=== PATIENT | male | born 1970 ===

== ENCOUNTER 2017-01-22 18:59 | Emergency (ER) | payer MEDICAID ==
[2017-01-22 18:59] VITALS: BMI 24.2
[2017-01-22 19:31] VITALS: TEMP 98.4
--- NOTE | 2017-01-22 20:16 | C.PDOC ---
History Of Present Illness 46 y/o M presents for heroin detox. He denies SI/HI/hallucinations, fever, chest pain. Time Seen by Provider: 01/22/17 19:37 Chief Complaint (Nursing): Substance Abuse Past Medical History Vital Signs: Last Vital Signs Temp 98.4 F 01/22/17 19:29 Pulse 88 01/22/17 20:20 Resp 18 01/22/17 20:20 BP 137/82 01/22/17 20:20 Pulse Ox 100 01/22/17 20:20 - Medical History PMH: Back Problems, Hepatitis Surgical History: Endoscopy - [facility] Procedures CLOSURE SKIN & SUBCUTANEOUS NEC (06/14/13) TETANUS TOXOID ADMINIST (06/14/13) Family History: States: Unknown Family Hx - Social History Hx Tobacco Use: No Hx Alcohol Use: Yes (Denies, but pt smells like alcohol) Hx Substance Use: No (pt denies) - Immunization History Hx Tetanus Toxoid Vaccination: Yes Hx Influenza Vaccination: No Hx Pneumococcal Vaccination: No Review Of Systems Except As Marked, All Systems Reviewed And Found Negative. Constitutional: Negative for: Fever Cardiovascular: Negative for: Chest Pain Physical Exam - Physical Exam Appears: No Acute Distress Head: Atraumatic Oral Mucosa: Moist Neck: Supple Cardiovascular: Rhythm Regular Respiratory: No Accessory Muscle Use Gastrointestinal/Abdominal: Soft Gait: Steady ED Course And Treatment O2 Sat by Pulse Oximetry: 97 Medical Decision Making Medical Decision Making: No detox beds available. Gave information for calling back to ask for bed availability. Disposition - Disposition Disposition: HOME/ ROUTINE Disposition Time: 20:15 Condition: STABLE Additional Instructions: Call [phone] (Emergency Department number) and then ask to be transferred to [facility] [id number] (Crisis) and then ask if there are any beds available for detox. Call every day. Instructions: Narcotic Abuse (ED) - Clinical Impression Clinical Impression: Heroin abuse
[2017-01-22 20:25] VITALS: BP 137/82; PULSE 88; RESP 18
[2017-01-22 20:59] VITALS: O2SAT 97
== END 2017-01-22 20:25 | disposition home or self-care (01) ==
LOC: C.ER 18:59
DX: F11.10 Opioid abuse, uncomplicated (principal)

== ENCOUNTER 2017-11-11 01:17 | Inpatient (IN) | payer MEDICAID ==
[2017-11-11 01:40] VITALS: BMI 25.7
[2017-11-11 01:53] LABS: BASO % 0.3 % (0.0-2.0); EOS # 0.2 K/uL (0.0-0.7); EOS % 3.2 % (0.0-4.0); HEMOGLOBIN 16.5 g/dL (12.0-18.0); LYMPH # 2.8 K/uL (1.0-4.3); LYMPH % 39.6 % (20.0-40.0); MEAN CORPUSCULAR HEMOGLOBIN 32.9 pg (27.0-31.0); MEAN CORPUSCULAR HGB CONC 35.4 g/dL (33.0-37.0); MEAN PLATELET VOLUME 9.5 fL (7.2-11.7); MONO # 0.5 K/uL (0.0-0.8); MONO % 6.7 % (0.0-10.0); NEUT # 3.5 K/uL (1.8-7.0); NEUT % 50.2 % (50.0-75.0); NRBC % 0.1 % (0.0-2.0); RBC 5.02 Mil/uL (4.40-5.90); RED CELL DISTRIBUTION WIDTH 13.2 % (11.5-14.5)
[2017-11-11 02:10] LABS: SQUAMOUS EPITHIAL < 1 /hpf (0-5)
[2017-11-11 02:11] LABS: BARBITURATES, UR NEGATIVE (NEGATIVE); BENZODIAZEPINES, UR NEGATIVE (NEGATIVE); OPIATES, UR NEGATIVE (NEGATIVE)
[2017-11-11 02:14] LABS: ALB/GLOB RATIO 1.2 (1.0-2.1); ALBUMIN 4.2 g/dL (3.5-5.0); ALT/SGPT 35 U/L (21-72); AST/SGOT 25 U/L (17-59); BLOOD UREA NITROGEN 7 mg/dL (9-20); CALCIUM 8.9 mg/dl (8.6-10.4); GFR AFRICAN-AMERICAN > 60; GFR NON-AFRICAN AMERICAN > 60
[2017-11-11 02:16] LABS: URINE BILIRUBIN NEGATIVE (NEGATIVE); URINE BLOOD NEGATIVE (NEGATIVE); URINE CLARITY CLEAR (Clear); URINE COLOR YELLOW (YELLOW); URINE GLUCOSE (UA) NEGATIVE (Normal)
[2017-11-11 02:17] LABS: URINE LEUKOCYTE ESTERASE NEGATIVE Leu/uL (Negative); URINE NITRATE NEGATIVE (NEGATIVE); URINE PROTEIN NEGATIVE (NEGATIVE); URINE UROBILINOGEN 0.2 mg/dL (0.2-1.0)
[2017-11-11 02:39] LABS: PHENCYCLIDINE, UR POSITIVE (NEGATIVE)
--- NOTE | 2017-11-11 03:29 | C.PDOC ---
History Of Present Illness Patient is a 47 y/o male who presents to the ED with complaints of depression and suicidal ideations. Patient has a Hx of similar ED presentations in the past. Admits to using unspecified drugs; last used 2 days ago. Patient has no other physical complaints at this time. Time Seen by Provider: 11/11/17 01:46 Chief Complaint (Nursing): Psychiatric Evaluation History Per: Patient History/Exam Limitations: no limitations Current Symptoms Are (Timing): Still Present Suicide/Self Injury Attempted (Context): None Associated Symptoms: Depression, Suicidal Thoughts Recent travel outside of the [place]: No Past Medical History Reviewed: Historical Data, Nursing Documentation, Vital Signs Vital Signs: Last Vital Signs Temp 98 F 11/11/17 01:47 Pulse 100 H 11/11/17 01:47 Resp 20 11/11/17 01:47 BP 153/80 H 11/11/17 01:47 Pulse Ox 100 11/11/17 03:32 - Medical History PMH: Back Problems, Hepatitis Denies: Chronic Kidney Disease Surgical History: Endoscopy - [facility] Procedures CLOSURE SKIN & SUBCUTANEOUS NEC (06/14/13) TETANUS TOXOID ADMINIST (06/14/13) Family History: States: No Known Family Hx - Social History Hx Tobacco Use: No Hx Alcohol Use: Yes Hx Substance Use: Yes (last use 2 days ago) - Immunization History Hx Tetanus Toxoid Vaccination: Yes Hx Influenza Vaccination: No Hx Pneumococcal Vaccination: No Review Of Systems Constitutional: Negative for: Fever, Chills Psych: Positive for: Depression, Suicidal ideation, Other (drug abuse) Physical Exam - Physical Exam Appears: Non-toxic, Agitated, Other (discheveled) Skin: Normal Color, No Rash Head: Atraumatic, Normacephalic Eye(s): bilateral: Normal Inspection, PERRL, EOMI Oral Mucosa: Moist Neck: Normal ROM, Supple Chest: Symmetrical, No Tenderness Cardiovascular: Rhythm Regular, No Friction Rub, No Murmur Respiratory: Normal Breath Sounds, No Rales, No Rhonchi, No Wheezing Gastrointestinal/Abdominal: Soft, No Tenderness Back: Normal Inspection, No CVA Tenderness Neurological/Psych: Normal Speech ED Course And Treatment - Laboratory Results Result Diagrams: 11/11/17 01:50 11/11/17 01:50 O2 Sat by Pulse Oximetry: 100 Progress Note: Crisis notified. Ativan administered. Disposition - Disposition Disposition Time: 06:03 Condition: FAIR Forms: [facility] (German) - POA Present On Arrival: None - Clinical Impression Clinical Impression: Drug abuse, Moderate major depression, single episode - Scribe Statement The provider has reviewed the documentation as recorded by the Scribe Esperanza Petty All medical record entries made by the Scribe were at my direction and personally dictated by me. I have reviewed the chart and agree that the record accurately reflects my personal performance of the history, physical exam, medical decision making, and the department course for this patient. I have also personally directed, reviewed, and agree with the discharge instructions and disposition. Physician Patient Turnover Patient Signed Over To: Carleen Frazier Handoff Comments: Pending psych admission
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
--- NOTE | 2017-11-11 14:54 | PCM.BM ---
<Antionette Sutton - Last Filed: 11/11/17 14:53> Treatment Plan Problems - Problems identified on initial assessmt anxiety Date Initiated: 11/11/17 Time Initiated: 14:53 Assessment reference: NA Status: Active Treatment assets and liabiliti Patient Assests: cooperative, ADL independent, physically healthy, cognitively intact Patient Liabilities: live alone, substance abuse - Milieu Protocol Maintain good personal hygiene: daily Encourage regular showers Maintain personal safety: every shift Educate patient to report safety concerns to staff, every shift Monitor environment for contraband/sharps Medication safety: Monitor for expected outcome, potential side effects: every shift, Assess barriers to learning: every shift, Assess readiness for medication education: every shift Milieu Narrative: Bipolar Disorder, Depressed -CBT -Psychoeducation -Supportive therapy, group therapy, individual therapy -Medications to follow PCP Use disorder severe -Monitor signs and symptoms -Use SC for abstinence DW Dr. Delgado, Antonia Bal DO, PGY-1 Discharge/Continuing Care - Treatment Team Participation Patient/Family/SO Statement: Bipolar Disorder, Depressed -CBT -Psychoeducation -Supportive therapy, group therapy, individual therapy -Medications to follow PCP Use disorder severe -Monitor signs and symptoms -Use SC for abstinence DW Antonia Castellano DO, PGY-1 <Dawna Delgado - Last Filed: 11/12/17 11:13> - Diagnosis (1) Bipolar disorder, curr episode depressed, severe, w/psychotic features Status: Acute Interventions: 11/12/17 11:14 * Assess/adjust medications daily and /or as needed * See patient on an individual basis 7x/week to assess level of manic behaviors and stability * Discuss risks, benefits, side effects and alternatives of medications * <Myra Kapadia - Last Filed: 11/12/17 11:25> Family Contact Family involvement: Famliy/SO not involved - Goals for Treatment Patient goals for treatment: "[facility] to [facility] back to [facility]." Discharge/Continuing Care - Education Needs Education Needs: Patient Medication, Patient Coping Skills - Discharge Discharge Criteria: Tolerates medication w/o severe side effects, Reduction of target symptoms Discharge to:: Home - Treatment Team Participation Discussed with Family/SO: No Was Patient/Family/SO present at Treatment Team Meeting: Yes
--- NOTE | 2017-11-12 11:12 | PCM.PYCHPN ---
Psychiatric Progress Note - Psychiatric Progress Note Patient seen today, length of contact: 16 min Patient Chief Complaint: *Feeling depressed Problems Identified/Issues Discussed: Patient seen and evaluated, chart reviewed and discussed with the nurse. As per the staff, patient still appears isolated, depressed and withdrawn. Patient still reports depressed mood and reports at times feelings of hopelessness or helplessness. He still reports of hearing voices. He needs some more time for stabilization. He is compliant with her medications and denies any side effects. Supportive therapy and psychoeducation were given. Medication Change: Yes (Start Seroquel) Medical Record Reviewed: Yes Mental Status Examination - Cognitive Function Orientation: Person, Place, Situation, Time Memory: Intact Attention: WNL Concentration: Poor Association: WNL Fund of Knowledge: Poor - Mood Mood: Depressed, Anxious - Affect Affect: Constricted, Depressed - Speech Speech: Soft - Formal Thought Process Formal Thought Process: Hallucinations - Suicidal Ideation Suicidal Ideation: No - Homicidal Ideation Homicidal Ideation: No Goal/Treatment Plan - Goal/Treatment Plan Need for Continued Stay: Severe depression anxiety, Severe functional impairment Progress Toward Problem(s) and Goals/Treatment Plan: Bipolar Disorder, Depressed -CBT -Psychoeducation -Supportive therapy, group therapy, individual therapy -Medications to follow -Paxil 10 mg daily -Neurontin 300 mg by mouth twice a day -Trazodone 50 mg by mouth daily at bedtime -Start Seroquel 50 mg by mouth daily at bedtime PCP Use disorder severe -Monitor signs and symptoms -Use CA for abstinence - Smoking Cessation Smoking Cessation Initiated: No
[2017-11-13 07:21] VITALS: O2SAT 98
[2017-11-15 07:55] VITALS: BP 87/58; PULSE 67; RESP 16; TEMP 98.3
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
== END 2017-11-15 10:35 | disposition home or self-care (01) | DRG 430 ==
LOC: C.ER 01:17 → C.5E 08:18
PROVIDERS: ADMIT Psychiatry & Neurology Psychiatry; ATTEND Psychiatry & Neurology Psychiatry
PROC: GZHZZZZ Group Psychotherapy (ICD-10-PCS; principal; 2017-11-11)
PROC: GZ58ZZZ Individual Psychotherapy, Cognitive-Behavioral (ICD-10-PCS; 2017-11-11)
PROC: GZ56ZZZ Individual Psychotherapy, Supportive (ICD-10-PCS; 2017-11-11)
DX: F31.5 Bipolar disorder, current episode depressed, severe, with psychotic features (principal); R45.851 Suicidal ideations; F16.10 Hallucinogen abuse, uncomplicated; Z79.899 Other long term (current) drug therapy

== ENCOUNTER 2018-04-01 12:27 | Inpatient (IN) | payer MEDICAID ==
[2018-04-01 12:28] VITALS: BMI 25.7
[2018-04-01 13:31] LABS: URINE BACTERIA RARE (<OCC); URINE BILIRUBIN NEGATIVE (NEGATIVE); URINE BLOOD NEGATIVE (NEGATIVE); URINE CLARITY Hazy (Clear); URINE COLOR Amber (YELLOW); URINE GLUCOSE (UA) NORMAL (Normal); URINE LEUKOCYTE ESTERASE NEG Leu/uL (Negative); URINE PROTEIN 1+ mg/dL (NEGATIVE)
[2018-04-01 13:45] LABS: BASO % 0.5 % (0.0-2.0); EOS # 0.1 K/uL (0.0-0.7); EOS % 1.3 % (0.0-4.0); HEMOGLOBIN 13.8 g/dL (12.0-18.0); LYMPH # 0.9 K/uL (1.0-4.3); LYMPH % 17.2 % (20.0-40.0); MEAN CELL VOLUME 90.5 fL (80.0-94.0); MEAN CORPUSCULAR HEMOGLOBIN 31.3 pg (27.0-31.0); MEAN CORPUSCULAR HGB CONC 34.6 g/dL (33.0-37.0); MONO # 0.3 K/uL (0.0-0.8); MONO % 5.1 % (0.0-10.0); NEUT # 3.9 K/uL (1.8-7.0); NEUT % 75.9 % (50.0-75.0); RBC 4.42 Mil/uL (4.40-5.90); RED CELL DISTRIBUTION WIDTH 12.6 % (11.5-14.5); WHITE BLOOD COUNT 5.1 K/uL (4.8-10.8)
[2018-04-01 13:52] LABS: BARBITURATES, UR NEGATIVE (NEGATIVE); BENZODIAZEPINES, UR NEGATIVE (NEGATIVE)
[2018-04-01 13:58] LABS: ALB/GLOB RATIO 1.2 (1.0-2.1); ALT/SGPT 28 U/L (21-72); AST/SGOT 28 U/L (17-59); BLOOD UREA NITROGEN 16 mg/dL (9-20); CALCIUM 9.2 mg/dl (8.6-10.4); GFR AFRICAN-AMERICAN > 60; GFR NON-AFRICAN AMERICAN > 60
[2018-04-01 14:12] LABS: OPIATES, UR POSITIVE (NEGATIVE); PHENCYCLIDINE, UR POSITIVE (NEGATIVE)
--- NOTE | 2018-04-01 14:16 | C.PDOC ---
History Of Present Illness The patient presents to the ED requesting heroin detox. Patient states he usually uses 20 bags intravenously, but last used 10 bags yesterday. Patient denies other substance abuse, suicidal/homicidal ideation at this time. Time Seen by Provider: 04/01/18 12:54 Chief Complaint (Nursing): Substance Abuse History Per: Patient History/Exam Limitations: no limitations Onset/Duration Of Symptoms: Hrs Current Symptoms Are (Timing): Still Present Suicide/Self Injury Attempted (Context): None Modifying Factor(s): Narcotics (heroin ) Associated Symptoms: denies: Suicidal Thoughts, Suicidal Plan Involuntary Hold By: None Recent travel outside of the [place]: No Additional History Per: Patient Past Medical History Reviewed: Historical Data, Nursing Documentation, Vital Signs Vital Signs: Last Vital Signs Temp 98 F 04/01/18 12:33 Pulse 78 04/01/18 12:33 Resp 18 04/01/18 12:33 BP 136/72 04/01/18 12:33 Pulse Ox 98 04/01/18 14:55 - Medical History PMH: Back Problems, Hepatitis Denies: Diabetes, HIV, HTN, Chronic Kidney Disease, Seizures, Sexually Transmitted Disease Surgical History: Endoscopy - [facility] Procedures CLOSURE SKIN & SUBCUTANEOUS NEC (06/14/13) GROUP PSYCHOTHERAPY (11/11/17) INDIVIDUAL PSYCHOTHERAPY, COGNITIVE-BEHAVIORAL (11/11/17) INDIVIDUAL PSYCHOTHERAPY, SUPPORTIVE (11/11/17) TETANUS TOXOID ADMINIST (06/14/13) Family History: States: Unknown Family Hx - Social History Hx Tobacco Use: No Hx Alcohol Use: No (denied) Hx Substance Use: Yes (PCP) - Immunization History Hx Tetanus Toxoid Vaccination: Yes Hx Influenza Vaccination: No Hx Pneumococcal Vaccination: No Review Of Systems Psych: Positive for: Other (heroin detox ). Negative for: Suicidal ideation Physical Exam - Physical Exam Additional Physical Exam Comments: Constitutional: No acute distress. Head: Normocephalic. Atraumatic. Eyes: PERRL. ENT: Moist mucous membranes. Neck: Supple. Cardiovascular: Regular rate. Chest: No tenderness. Respiratory: Clear to auscultation bilaterally. GI: Soft. Back: No CVA tenderness. Musculoskeletal: No tenderness or swelling of extremities. Skin: No rash. Neurologic: Alert, no focal deficit. ED Course And Treatment - Laboratory Results Result Diagrams: 04/01/18 13:39 04/01/18 13:39 O2 Sat by Pulse Oximetry: 98 (on RA) Pulse Ox Interpretation: Normal Medical Decision Making Medical Decision Making: Impression: 47 year old male requesting heroin detox Plan: * bloodwork * urinalysis * reassess and disposition Progress: Bloodwork and urinalysis ordered and reviewed. Disposition Discussed With : Doyle Booth - Disposition Disposition: HOSPITALIZED Disposition Time: 14:16 Condition: GUARDED Forms: [employer] (Liberian) - Clinical Impression Clinical Impression: Opioid use disorder, severe, dependence - Scribe Statement The provider has reviewed the documentation as recorded by the Scribe (Danielle Curtis) Provider Attestation: All medical record entries made by the Scribe were at my direction and personally dictated by me. I have reviewed the chart and agree that the record accurately reflects my personal performance of the history, physical exam, medical decision making, and the department course for this patient. I have also personally directed, reviewed, and agree with the discharge instructions and disposition.
--- NOTE | 2018-04-01 15:17 | PCM.BM ---
<Josiah Warner - Last Filed: 04/01/18 15:16> Treatment Plan Problems - Problems identified on initial assessmt potential for opiate withdrawal Date Initiated: 04/01/18 Time Initiated: 15:16 Status: Active Treatment assets and liabiliti Patient Assests: cooperative, ADL independent, physically healthy, cognitively intact Patient Liabilities: substance abuse - Milieu Protocol Maintain good personal hygiene: daily Encourage regular showers, daily Remind patient to perform daily oral care, daily Assist patient to perform ADL's Maintain personal safety: every shift Educate patient to report safety concerns to staff, every shift Monitor environment for contraband/sharps Medication safety: Monitor for expected outcome, potential side effects: every shift, Assess barriers to learning: every shift, Assess readiness for medication education: every shift <Hui Zelaya - Last Filed: 04/04/18 08:07> Family Contact Family involvement: Famliy/SO not involved - Goals for Treatment Patient goals for treatment: Complete detox and transition to IOP. Discharge/Continuing Care - Education Needs Education Needs: Patient Medication, Patient Diagnosis/Disease Process, Patient Coping Skills, Patient Anger Management skills, Patient Placement options, Patient Community resources - Discharge Discharge Criteria: No longer exhibiting s/s of withdrawal, Reduction of target symptoms Discharge to:: Home, With Family - Treatment Team Participation Patient/Family/SO Statement: 04/04/18 08:08 "I [facility] go to the [facility] [place] when I'm done here..." Discussed with Family/SO: No Was Patient/Family/SO present at Treatment Team Meeting: Yes <Doyle Booth - Last Filed: 04/07/18 08:55> - Diagnosis (1) Opioid use disorder, severe, dependence Status: Acute Interventions: 04/04/18 08:55 * Assess 7x/week regarding severity of withdrawal * Educate regarding risks, benefits, side effects and alternatives of medications * Use Motivational Interviewing for abstinence * Use CBT for relapse prevention * Medication management for withdrawal symptoms * Encourage medication assisted treatment *
[2018-04-02] MEDS: Multiple Vitamins Tab PO SCH (09:33)
--- NOTE | 2018-04-02 17:14 | PCM.PSYCH ---
Initial Psychiatric Evaluation - Initial Psychiatric Evaluation Type of Admission: Voluntary Legal Status: Capacity History of Present Illness and Precipitating Events: Patient is 47 year old, single, unemployed Male with history of bipolar disorder depressed, PCP alcohol and heroin use was admitted for the treatment of retrying from alcohol and harrowing and also for depression, hearing voices, and suicidal ideation. He is currently living in an apartment that is supported by "[facility] program- provided by welfare". He is currently unemployed, no children, highest education level of 11th grade. Patient reported feeling depressed with decreased sleep and appetite and lost some weight. Denied any current suicidal ideations or homicidal ideations. Patient reported hearing voices at times telling him to hurt himself. Patient was guarded about his history and it was difficult to obtain information. Most of the history was obtained from previous records. Alcohol: Started at 16 years of age, increased gradually up to 6-7,24 ounces cans daily. Last used 2 days ago. Heroine: Started at 19 years of age. Patient reported that he relapsed about one month ago after a long period of abstinence. Currently he was using 1-1/2 bundles off heroin daily. Snorting. Denied use of any other drugs but old record shows that patient was using PCP. Patient was born in [place] and was attending special ed school. Never and has 3 children. He lives alone and is not working. Current Medications: Active Medications Generic Name Dose Route Start Last Admin Trade Name Freq PRN Reason Stop Dose Admin Chlordiazepoxide 25 mg 04/01/18 17:36 Librium PO Q4H PRN Alcohol Withdrawal Chlordiazepoxide 25 mg 04/01/18 18:00 04/02/18 12:33 Librium PO 04/06/18 17:59 25 mg Q6H RADHA Administration Taper Clonidine HCl 0.1 mg 04/01/18 17:36 Catapres PO Q4H PRN Symptoms of alcohol withdrawl Dicyclomine HCl 10 mg 04/01/18 17:32 Bentyl PO Q6H PRN gastric spasms Folic Acid 1 mg 04/02/18 10:00 04/02/18 09:33 Folic Acid PO 1 mg DAILY RADHA Administration Hydroxyzine HCl 50 mg 04/01/18 17:32 Atarax PO Q6H PRN Anxiety Ibuprofen 600 mg 06/22/18 17:32 Motrin Tab PO Q6H PRN Pain, moderate (4-7) Methadone HCl 20 mg 04/02/18 10:00 04/02/18 09:33 Methadone PO 04/07/18 09:59 20 mg Q24H RADHA Administration Taper Multivitamins 1 tab 04/02/18 10:00 04/02/18 09:33 Hexavitamin PO 1 tab DAILY RADHA Administration Thiamine HCl 100 mg 04/02/18 10:00 04/02/18 09:33 Vitamin B1 Tab PO 100 mg DAILY RADHA Administration Trazodone HCl 100 mg 04/01/18 22:00 04/01/18 21:25 Desyrel PO 100 mg HS RADHA Administration Past Psychiatric History - Past Psychiatric History Previous Treatment History: Inpatient History of Abuse: None reported History of ETOH/Drug Use: See HPI History of Family Illness: Reported his mother has history of depression. Pertinent Medical Hx (Current Medical&Sleep Prob, Allergies): Allergies Allergy/AdvReac Type Severity Reaction Status Date / Time buprenorphine [From Suboxone] Allergy REDNESS Verified 04/01/18 12:43 naloxone [From Suboxone] Allergy REDNESS Verified 04/01/18 12:43 Hepatitis C Review of Systems - Psychiatric Psychiatric: As Per HPI, Depression Mental Status Examination - Personal Presentation Personal Presentation: Looks stated age - Affect Affect: Depressed - Motor Activity Motor Activity: Calm - Reliability in Providing Information Reliability in Providing Information: Fair - Speech Speech: Relevant - Mood Mood: Depressed - Formal Thought Process Formal Thought Process: No Impairment - Hallucinations/Delusions Hallucinations: Other (None reported) Delusions: Other - Obsessions/Compulsions Obsessions: None Compulsions: None - Cognitive Functions Orientation: Person, Place, Situation, Time Sensorium: Alert Attention/Concentration: Attentive Abstract Thinking: [place] Estimate of Intelligence: Average Judgement: Intact, as evidence by: Insight regarding need for hospitalization Memory: Recent intact, as evidence by: Ability to recall events of the day, Remote impaired as evidenced by: Inability to recall sig life events - Risk Risk: Withdrawal, Diminished functioning - Strength & Assets Inventory Strength & Assets Inventory: Cooperative - Limitations Limitations: Living alone DSM 5 DX - DSM 5 DSM 5 Diagnosis: Bipolar 1 disorder most recent episode depressed. Alcohol use disorder severe Opiate use disorder severe - Recommended/Plan of Treatment Treatment Recommendations and Plan of Treatment: Patient education. Supportive therapy. CBT for relapse prevention. MRI for abstinence. Will start methadone taper for opiate withdrawal symptoms. Will start Librium taper for alcohol withdrawal symptoms. Other when necessary medications. Medication for depression. Projected ELOS: 4-5 days - Smoking Cessation Smoking Cessation Initiated: No Reason for not providing: Patient doesn't smoke cigarettes
[2018-04-03] MEDS: Multiple Vitamins Tab PO SCH (10:22)
--- NOTE | 2018-04-03 15:52 | PCM.PYCHPN ---
Psychiatric Progress Note - Psychiatric Progress Note Patient seen today, length of contact: 15 minutes Patient Chief Complaint: I'm feeling better Problems Identified/Issues Discussed: Patient seen, chart reviewed, case discussed with the staff. Issues related to illness and treatment were discussed with the patient. Reported compliant with treatment with no adverse affects. Tolerating treatment very well. Reported feeling better. Aftercare discussed with the patient. At the time of evaluation, patient was awake alert oriented 3, had no delusions , no auditory or visual hallucinations, no suicidal ideations or homicidal ideations. Medical Problems: None reported Diagnostic Results: Reviewed DSM 5 Symptoms Update: Some improvement with treatment Medication Change: No Medical Record Reviewed: Yes Mental Status Examination - Cognitive Function Orientation: Person, Place, Situation, Time Memory: Intact Attention: WNL Concentration: WNL Association: WN Fund of Knowledge: [facility] Decription of patient's judgement and insights: Fair - Mood Mood: Anxious (Much less than before) - Affect Affect: Other (Appropriate) - Speech Speech: Appropriate - Formal Thought Process Formal Thought Process: No Impairment Psychotic Thoughts and Behaviors: None - Suicidal Ideation Suicidal Ideation: No - Homicidal Ideation Homicidal Ideation: No Goal/Treatment Plan - Goal/Treatment Plan Need for Continued Stay: Remain at risks for inpatient hospitalization, Discharge may exacerbated symptoms, Severe functional impairment Progress Toward Problem(s) and Goals/Treatment Plan: Patient education. Supportive therapy. CBT for relapse prevention. [place] for abstinence. Continue treatment as before. Estimated Date of D/C: 04/06/18 - Smoking Cessation Smoking Cessation Initiated: No Reason for not providing: Patient doesn't smoke cigarettes
[2018-04-04] MEDS: Multiple Vitamins Tab PO SCH (09:56)
--- NOTE | 2018-04-04 11:18 | PCM.PYCHPN ---
Psychiatric Progress Note - Psychiatric Progress Note Patient seen today, length of contact: 15 minutes Patient Chief Complaint: "Tired" Problems Identified/Issues Discussed: The pt is seen, chart reviewed, case discussed with staff. The pt is compliant with medications and reports no side-effects. Symptoms are improving but needs more time to stabilize. After care discussed, support and psychoeducation given. Medication Change: Yes (detox changes daily) Medical Record Reviewed: Yes Mental Status Examination - Cognitive Function Orientation: Person, Place, Situation, Time Memory: Intact Attention: WNL Concentration: Poor Association: WNL Fund of Knowledge: WNL - Mood Mood: Depressed - Affect Affect: Constricted - Speech Speech: Appropriate - Formal Thought Process Formal Thought Process: No Impairment - Suicidal Ideation Suicidal Ideation: No - Homicidal Ideation Homicidal Ideation: No Goal/Treatment Plan - Goal/Treatment Plan Need for Continued Stay: Discharge may exacerbated symptoms, Severe functional impairment Progress Toward Problem(s) and Goals/Treatment Plan: Continue medications Support and psychoeducation daily Attend groups and activities daily After care planning by JAZMIN Estimated Date of D/C: 04/06/18
[2018-04-04 16:27] VITALS: RESP 18
[2018-04-04] MEDS ORDERED: Bacitracin 500 Units/gm Oint Foilpak UD TOP ONE (19:00)
--- NOTE | 2018-04-05 08:54 | PCM.PYCHDC ---
Mental Status Examination - Mental Status Examination Orientation: Person, Place, Situation, Time Memory: Intact Mood: Anxious Affect: Constricted Speech: Appropriate Attention: WNL Concentration: Poor Association: WNL Fund of Knowledge: WNL Formal Thought Process: No Impairment Suicidal Ideation: No Current Homicidal Ideation?: No Discharge Summary - Discharge Note Reason for Hospitalization: opioid detox Consultations:: List each consultation separately and include: 1. Reason for request. 2. Findings. 3. Follow-up Summary of Hospital Course include:: 1. Description of specific treatment plan utilized for patients during their course of treatmen. 2. Summarize the time- course for resolution of acute symptoms and/or regressed behaviors. 3. Describe issues identified and worked on during hospitalization. 4. Describe medication utilized. 5. Describe medical problems identified and treated. 6. Reassessment of suicide risk Summary of Hospital Course: Seen today, chart reviewed and case discussed The pt was admitted and started on treatment with psychotherapy, support, psychoeducation and medications. ID and CBT used. The pt attended groups and activities, as well as milieu therapy. All the risks and benefits of medications are discussed and the patient understood and agreed. The pt improved with the treatments provided. After care discussed with the patient. He will go to [facility]. He was minimizing risk of relapse and said that if he could continue his psych meds he would be "clean." All options to prevent relapse discussed. - Final Diagnosis (DSM 5) Condition upon Discharge: IMPROVED DSM 5: Opioid withdrawal Opioid use d/o - sevetre PCP use d/o Schizoaffective d/o Disposition: HOME/ ROUTINE Follow-up Treatment Plan: Continue below medications after discharge. Follow after care plan as discussed. Use relapse prevention skills Return to ER or call 911 if suicidal, homicidal or symptoms relapse. Stay away from stress, alcohol and drugs. See primary doctor regularly and get labs. Prescriptions/Medication Reconciliation: Benztropine [Cogentin] 2 mg PO HS #30 tab Gabapentin [Neurontin] 300 mg PO BID #60 cap Haloperidol [Haldol] 10 mg PO HS #30 tab traZODone [Desyrel] 100 mg PO HS #30 tab - Smoking Cessation Smoking Cessation Medication prescribed: No - Antipsychotic Medications Pt discharged on 2 or more routine antipsychotic medications: No
[2018-04-05 08:59] VITALS: BP 87/57; PULSE 58; TEMP 97.6; O2SAT 97
[2018-04-05] MEDS: Multiple Vitamins Tab PO SCH (09:46)
== END 2018-04-05 10:20 | disposition home or self-care (01) | DRG 745 ==
LOC: C.ER 12:27 → C.7D 14:54
PROVIDERS: ADMIT Psychiatry & Neurology Psychiatry; ATTEND Psychiatry & Neurology Psychiatry
PROC: HZ2ZZZZ Detoxification Services for Substance Abuse Treatment (ICD-10-PCS; principal; 2018-04-01)
PROC: HZ52ZZZ Individual Psychotherapy for Substance Abuse Treatment, Cognitive-Behavioral (ICD-10-PCS; 2018-04-01)
PROC: HZ59ZZZ Individual Psychotherapy for Substance Abuse Treatment, Supportive (ICD-10-PCS; 2018-04-01)
PROC: HZ56ZZZ Individual Psychotherapy for Substance Abuse Treatment, Psychoeducation (ICD-10-PCS; 2018-04-01)
PROC: HZ42ZZZ Group Counseling for Substance Abuse Treatment, Cognitive-Behavioral (ICD-10-PCS; 2018-04-01)
PROC: HZ46ZZZ Group Counseling for Substance Abuse Treatment, Psychoeducation (ICD-10-PCS; 2018-04-01)
PROC: GZHZZZZ Group Psychotherapy (ICD-10-PCS; 2018-04-01)
PROC: GZ58ZZZ Individual Psychotherapy, Cognitive-Behavioral (ICD-10-PCS; 2018-04-01)
PROC: GZ56ZZZ Individual Psychotherapy, Supportive (ICD-10-PCS; 2018-04-01)
DX: F10.230 Alcohol dependence with withdrawal, uncomplicated (principal); F11.23 Opioid dependence with withdrawal; Y90.0 Blood alcohol level of less than 20 mg/100 ml; F31.9 Bipolar disorder, unspecified; R45.851 Suicidal ideations; F16.90 Hallucinogen use, unspecified, uncomplicated; Z81.8 Family history of other mental and behavioral disorders

== ENCOUNTER 2018-05-10 15:01 | Emergency (ER) | payer MEDICAID ==
[2018-05-10 15:01] VITALS: BMI 25.7
[2018-05-10 15:23] VITALS: RESP 18
--- NOTE | 2018-05-10 16:08 | C.PDOC ---
History Of Present Illness 47 yo male comes to ER with complaints of generalized weakness, watery diarrhea , nausea, chills and decreased appetite x 7 days. Patient also admits to using heroin and PCP in the past (last use 1 week ago). He denies vomiting, chest pain, shortness of breath, cough, dysuria/hematuria. Time Seen by Provider: 05/10/18 15:58 Chief Complaint (Nursing): Abdominal Pain History Per: Patient History/Exam Limitations: no limitations Onset/Duration Of Symptoms: Days Current Symptoms Are (Timing): Still Present Severity: Moderate Associated Symptoms: Chills, Nausea, Diarrhea, Loss Of Appetite Additional History Per: Patient Past Medical History Reviewed: Historical Data, Nursing Documentation, Vital Signs Vital Signs: Last Vital Signs Temp 98.3 F 05/10/18 18:42 Pulse 55 L 05/10/18 18:42 Resp 18 05/10/18 18:42 BP 110/73 05/10/18 18:42 Pulse Ox 99 05/10/18 18:42 - Medical History PMH: Anxiety, Back Problems, Bipolar Disorder, Depression, Hepatitis Surgical History: Endoscopy - [facility] Procedures CLOSURE SKIN & SUBCUTANEOUS NEC (06/14/13) DETOXIFICATION SERVICES FOR SUBSTANCE ABUSE TREATMENT (04/01/18) GROUP CULINARY INTERN FOR SUBSTANCE ABUSE TREATMENT, PSYCHOEDUCATION (04/01/18) GROUP CULINARY INTERN FOR SUBSTANCE ABUSE, COGNITIVE BEHAVIORAL (04/01/18) GROUP PSYCHOTHERAPY (04/01/18) INDIV PSYCHOTHERAPY FOR SUBSTANCE ABUSE TREATMENT, SUPPORT (04/01/18) INDIV PSYCHOTHERAPY FOR SUBSTANCE ABUSE, COGNITIV BEHAVIORAL (04/01/18) INDIV PSYCHOTHERAPY FOR SUBSTANCE ABUSE, PSYCHOEDUCATION (04/01/18) INDIVIDUAL PSYCHOTHERAPY, COGNITIVE-BEHAVIORAL (04/01/18) INDIVIDUAL PSYCHOTHERAPY, SUPPORTIVE (04/01/18) TETANUS TOXOID ADMINIST (06/14/13) Family History: States: No Known Family Hx - Social History Hx Tobacco Use: No Hx Alcohol Use: Yes Hx Substance Use: Yes (heroin and PCP) - Immunization History Hx Tetanus Toxoid Vaccination: Yes Hx Influenza Vaccination: No Hx Pneumococcal Vaccination: No Review Of Systems Constitutional: Positive for: Chills, Weakness. Negative for: Fever Cardiovascular: Negative for: Chest Pain, Palpitations Respiratory: Negative for: Cough, Shortness of Breath Gastrointestinal: Positive for: Nausea, Diarrhea. Negative for: Vomiting Genitourinary: Negative for: Dysuria, Hematuria Skin: Negative for: Rash Physical Exam - Physical Exam Appears: Well, Non-toxic, Other (mildly uncomfortable ) Skin: Normal Color, Warm, Dry, No Rash Head: Normacephalic Eye(s): bilateral: Normal Inspection Oral Mucosa: Moist Neck: Supple Cardiovascular: Rhythm Regular Respiratory: Normal Breath Sounds, No Rales, No Rhonchi, No Wheezing Gastrointestinal/Abdominal: Normal Exam, Bowel Sounds, Soft, No Tenderness Back: No CVA Tenderness Neurological/Psych: Oriented x3 ED Course And Treatment - Laboratory Results Result Diagrams: 05/10/18 17:04 05/10/18 17:04 O2 Sat by Pulse Oximetry: 96 (RA) Pulse Ox Interpretation: Normal Progress Note: Blood work, UA ordered and reviewed. Patient given IV NS bolus, IV zofran, PO Bentyl. Reevaluation Time: 18:30 Reassessment Condition: Improved (On reassessment, patient is resting comfortably and states he feels better. On exam, abdomen is soft and nontender. Symptoms likely viral vs opiate withdrawal symptoms. Rxs for Bentyl , Zofran given. Patient instructed to drink plenty of clear fluids, and to follow up with PMD/clinic in 1-2 days. He understands he should return to ED if symptoms worsen.) Disposition Counseled Patient/Family Regarding: Studies Performed, Diagnosis, Need For Followup, Rx Given - Disposition Referrals: [facility] [Outside] Disposition: HOME/ ROUTINE Disposition Time: 18:30 Condition: STABLE Additional Instructions: FOLLOW UP WITH YOUR DOCTOR/CLINIC IN 1-2 DAYS USE MEDICATIONS NEEDED DRINK PLENTY OF CLEAR FLUIDS RETURN TO ER IF SYMPTOMS WORSEN Prescriptions: Dicyclomine [Bentyl] 20 mg PO Q6 PRN #15 tab PRN Reason: ABDOMINAL CRAMPING Ondansetron [Zofran Odt] 4 mg PO Q8 PRN #15 odt PRN Reason: Nausea/Vomiting Forms: [facility] (Swedish), General Discharge Instructions Print Language: KHMER - POA Present On Arrival: None - Clinical Impression Clinical Impression: Diarrhea, Nausea - Scribe Statement The provider has reviewed the documentation as recorded by the Hugh Triplett Provider Attestation: All medical record entries made by the Hugh were at my direction and personally dictated by me. I have reviewed the chart and agree that the record accurately reflects my personal performance of the history, physical exam, medical decision making, and the department course for this patient. I have also personally directed, reviewed, and agree with the discharge instructions and disposition.
[2018-05-10] MEDS ORDERED: Sodium Chloride 0.9% 1,000 ML IV ONE (16:54)
[2018-05-10] MEDS ORDERED: Sodium Chloride 0.9% 0 ML ONE (17:09)
[2018-05-10 17:10] LABS: BASO % 0.3 % (0.0-2.0); EOS # 0.1 K/uL (0.0-0.7); EOS % 0.8 % (0.0-4.0); LYMPH # 0.9 K/uL (1.0-4.3); LYMPH % 13.4 % (20.0-40.0); MEAN CELL VOLUME 91.4 fL (80.0-94.0); MEAN CORPUSCULAR HEMOGLOBIN 31.8 pg (27.0-31.0); MEAN CORPUSCULAR HGB CONC 34.8 g/dL (33.0-37.0); MEAN PLATELET VOLUME 8.6 fL (7.2-11.7); MONO # 0.3 K/uL (0.0-0.8); MONO % 4.2 % (0.0-10.0); NEUT # 5.6 K/uL (1.8-7.0); NEUT % 81.3 % (50.0-75.0); NRBC % 0.1 % (0.0-2.0); RBC 5.43 Mil/uL (4.40-5.90); RED CELL DISTRIBUTION WIDTH 13.1 % (11.5-14.5); URINE BILIRUBIN NEGATIVE (NEGATIVE); URINE BLOOD NEGATIVE (NEGATIVE); URINE CLARITY Clear (Clear); URINE COLOR Yellow (YELLOW); URINE GLUCOSE (UA) NORMAL (Normal); URINE LEUKOCYTE ESTERASE NEG Leu/uL (Negative); URINE PROTEIN NEGATIVE (NEGATIVE); URINE UROBILINOGEN NORMAL mg/dL (0.2-1.0); WHITE BLOOD COUNT 6.9 K/uL (4.8-10.8)
[2018-05-10 17:12] LABS: HEMOGLOBIN 17.3 g/dL (12.0-18.0)
[2018-05-10] MEDS ORDERED: Sodium Chloride 0.9% 1,000 ML ONE (17:20)
[2018-05-10 17:21] LABS: ALB/GLOB RATIO 1.2 (1.0-2.1); ALBUMIN 4.9 g/dL (3.5-5.0); ALT/SGPT 38 U/L (21-72); AST/SGOT 39 U/L (17-59); BLOOD UREA NITROGEN 9 mg/dL (9-20); CALCIUM 10.3 mg/dl (8.6-10.4); GFR AFRICAN-AMERICAN > 60; GFR NON-AFRICAN AMERICAN > 60; LIPASE 285 U/L (23-300)
[2018-05-10 17:57] LABS: BARBITURATES, UR NEGATIVE (NEGATIVE); OPIATES, UR NEGATIVE (NEGATIVE)
[2018-05-10 18:10] LABS: BENZODIAZEPINES, UR POSITIVE (NEGATIVE); PHENCYCLIDINE, UR POSITIVE (NEGATIVE)
[2018-05-10 18:42] VITALS: BP 110/73; PULSE 55; TEMP 98.3
[2018-05-11 16:41] VITALS: O2SAT 96
== END 2018-05-10 18:42 | disposition home or self-care (01) ==
LOC: C.ER 15:01
DX: R19.7 Diarrhea, unspecified (principal); R11.0 Nausea
CPT/HCPCS: 80053; 80324; 80345; 80346; 80349; 80353; 80358; 80361; 81001; 83690; 83992; 85025; 96361; 96374; 99284; J2405; J7030

== ENCOUNTER 2018-06-03 22:38 | Emergency (ER) | payer MEDICAID ==
[2018-06-03 22:38] VITALS: BMI 25.7
[2018-06-03 22:56] VITALS: RESP 20; TEMP 98.5
--- NOTE | 2018-06-03 23:09 | C.PDOC ---
History Of Present Illness Patient presents to the ER with a complaint of feeling weak and being unable to sleep. Patient states he feels very sweaty when he wakes up. Denies chest pain, SOB, ETOH use, or drug use. Time Seen by Provider: 06/03/18 23:09 Chief Complaint (Nursing): Psychiatric Evaluation History Per: Patient History/Exam Limitations: no limitations Onset/Duration Of Symptoms: Hrs Current Symptoms Are (Timing): Still Present Suicide/Self Injury Attempted (Context): None Modifying Factor(s): None Severity: Moderate Pain Scale Rating Of: 4 Associated Symptoms: denies: Depression, Suicidal Thoughts Involuntary Hold By: None Recent travel outside of the [place]: No Past Medical History Reviewed: Historical Data, Nursing Documentation, Vital Signs Vital Signs: Last Vital Signs Temp 98.5 F 06/03/18 22:55 Pulse 87 06/04/18 00:29 Resp 20 06/04/18 00:29 BP 177/87 H 06/04/18 00:29 Pulse Ox 96 06/04/18 01:09 - Medical History PMH: Anxiety, Back Problems, Bipolar Disorder, Depression, Hepatitis Denies: Diabetes, HIV, HTN, Chronic Kidney Disease, Seizures, Sexually Transmitted Disease Surgical History: Endoscopy - [facility] Procedures CLOSURE SKIN & SUBCUTANEOUS NEC (06/14/13) DETOXIFICATION SERVICES FOR SUBSTANCE ABUSE TREATMENT (04/01/18) GROUP SILVER SOLUTION MIXER FOR SUBSTANCE ABUSE TREATMENT, PSYCHOEDUCATION (04/01/18) GROUP SILVER SOLUTION MIXER FOR SUBSTANCE ABUSE, COGNITIVE BEHAVIORAL (04/01/18) GROUP PSYCHOTHERAPY (04/01/18) INDIV PSYCHOTHERAPY FOR SUBSTANCE ABUSE TREATMENT, SUPPORT (04/01/18) INDIV PSYCHOTHERAPY FOR SUBSTANCE ABUSE, COGNITIV BEHAVIORAL (04/01/18) INDIV PSYCHOTHERAPY FOR SUBSTANCE ABUSE, PSYCHOEDUCATION (04/01/18) INDIVIDUAL PSYCHOTHERAPY, COGNITIVE-BEHAVIORAL (04/01/18) INDIVIDUAL PSYCHOTHERAPY, SUPPORTIVE (04/01/18) TETANUS TOXOID ADMINIST (06/14/13) Family History: States: Unknown Family Hx - Social History Hx Tobacco Use: No Hx Alcohol Use: Yes Hx Substance Use: Yes (heroin and PCP) - Immunization History Hx Tetanus Toxoid Vaccination: Yes Hx Influenza Vaccination: No Hx Pneumococcal Vaccination: No Review Of Systems Constitutional: Positive for: Sweats. Negative for: Fever, Chills Cardiovascular: Negative for: Chest Pain, Palpitations Respiratory: Negative for: Cough, Shortness of Breath Gastrointestinal: Negative for: Nausea, Vomiting Neurological: Negative for: Weakness, Numbness Physical Exam - Physical Exam Appears: Non-toxic, Other (Very anxious) Skin: Warm, Dry Head: Normacephalic Eye(s): bilateral: Normal Inspection Oral Mucosa: Moist Neck: Supple Chest: Symmetrical, No Tenderness Cardiovascular: Rhythm Regular Respiratory: No Rales, No Rhonchi, No Wheezing Gastrointestinal/Abdominal: Soft, No Tenderness Back: Normal Inspection Extremity: Normal ROM Extremity: Bilateral: Atraumatic Neurological/Psych: Oriented x3 Gait: Steady ED Course And Treatment - Laboratory Results Result Diagrams: 06/03/18 23:57 06/03/18 23:57 O2 Sat by Pulse Oximetry: 96 (Room air) Pulse Ox Interpretation: Normal Progress Note: Blood work and urinalysis ordered. Medical Decision Making Medical Decision Making: Upon provider reevaluation patient is feeling better, is medically stable, and requires no further treatment in the ED at this time. Patient will be discharged home . Counseling was provided and all questions were answered regarding diagnosis and need for follow up with the referred clinic. There is agreement to discharge plan. Return if symptoms persist or worsen. Disposition Counseled Patient/Family Regarding: Studies Performed, Diagnosis, Need For Followup - Disposition Referrals: [facility] [Outside] [facility] [Outside] Disposition: HOME/ ROUTINE Disposition Time: 23:09 Condition: FAIR Additional Instructions: Please follow up with your doctor or the clinic Instructions: Polysubstance Abuse (DC), Hyperthyroidism (Overactive Thyroid) ( DC) Forms: [facility] (Danish) - Clinical Impression Clinical Impression: PCP (phencyclidine) abuse, Hyperthyroidism - Scribe Statement The provider has reviewed the documentation as recorded by the Scribe Amandeep Kovacs All medical record entries made by the Scribe were at my direction and personally dictated by me. I have reviewed the chart and agree that the record accurately reflects my personal performance of the history, physical exam, medical decision making, and the department course for this patient. I have also personally directed, reviewed, and agree with the discharge instructions and disposition.
[2018-06-04 00:05] LABS: BASO % 0.6 % (0.0-2.0); EOS # 0.2 K/uL (0.0-0.7); EOS % 2.8 % (0.0-4.0); HEMOGLOBIN 16.1 g/dL (12.0-18.0); LYMPH # 1.3 K/uL (1.0-4.3); LYMPH % 16.7 % (20.0-40.0); MEAN CELL VOLUME 91.9 fL (80.0-94.0); MEAN CORPUSCULAR HGB CONC 34.8 g/dL (33.0-37.0); MEAN PLATELET VOLUME 9.4 fL (7.2-11.7); MONO # 0.5 K/uL (0.0-0.8); MONO % 6.1 % (0.0-10.0); NEUT # 5.7 K/uL (1.8-7.0); NEUT % 73.8 % (50.0-75.0); RBC 5.04 Mil/uL (4.40-5.90); RED CELL DISTRIBUTION WIDTH 13.6 % (11.5-14.5); URINE BILIRUBIN NEGATIVE (NEGATIVE); URINE CLARITY Clear (Clear); URINE COLOR Yellow (YELLOW); URINE GLUCOSE (UA) NORMAL (Normal); URINE LEUKOCYTE ESTERASE NEG Leu/uL (Negative); URINE PROTEIN NEGATIVE (NEGATIVE); URINE UROBILINOGEN NORMAL mg/dL (0.2-1.0); WHITE BLOOD COUNT 7.7 K/uL (4.8-10.8)
[2018-06-04 00:09] LABS: URINE BLOOD TRACE (NEGATIVE)
[2018-06-04 00:18] LABS: BARBITURATES, UR NEGATIVE (NEGATIVE); BENZODIAZEPINES, UR NEGATIVE (NEGATIVE); OPIATES, UR NEGATIVE (NEGATIVE)
[2018-06-04 00:58] LABS: ALB/GLOB RATIO 1.2 (1.0-2.1); ALBUMIN 4.9 g/dL (3.5-5.0); ALT/SGPT 25 U/L (21-72); AST/SGOT 36 U/L (17-59); BLOOD UREA NITROGEN 11 mg/dL (9-20); CALCIUM 9.6 mg/dl (8.6-10.4); GFR NON-AFRICAN AMERICAN > 60
[2018-06-04 01:09] VITALS: O2SAT 96
[2018-06-04 01:33] LABS: PHENCYCLIDINE, UR POSITIVE (NEGATIVE)
[2018-06-04 02:11] VITALS: BP 146/82; PULSE 78
== END 2018-06-04 02:26 | disposition home or self-care (01) ==
LOC: C.ER 22:38
DX: E05.90 Thyrotoxicosis, unspecified without thyrotoxic crisis or storm (principal); F16.10 Hallucinogen abuse, uncomplicated

== ENCOUNTER 2018-07-04 03:37 | Emergency (ER) | payer MEDICAID ==
[2018-07-04 03:39] VITALS: BMI 25.7
[2018-07-04 03:47] VITALS: RESP 20
--- NOTE | 2018-07-04 04:07 | C.PDOC ---
History Of Present Illness The patient, who has a history of heroin abuse, presents to the ED for evaluation of withdrawal symptoms. Patient states he last used heroin yesterday and reports nausea. Otherwise, he denies fever, chills, and vomiting. Time Seen by Provider: 07/04/18 04:07 Chief Complaint (Nursing): Substance Abuse History Per: Patient History/Exam Limitations: no limitations Onset/Duration Of Symptoms: Hrs Current Symptoms Are (Timing): Still Present Suicide/Self Injury Attempted (Context): None Modifying Factor(s): Narcotics (heroin ) Severity: None Pain Scale Rating Of: 0 Associated Symptoms: denies: Suicidal Thoughts, Suicidal Plan Involuntary Hold By: None Recent travel outside of the [place]: No Additional History Per: Patient Past Medical History Reviewed: Historical Data, Nursing Documentation, Vital Signs Vital Signs: Last Vital Signs Temp 98.8 F 07/04/18 03:41 Pulse 94 H 07/04/18 03:41 Resp 20 07/04/18 03:41 BP 135/98 H 07/04/18 03:41 Pulse Ox 96 07/04/18 04:36 - Medical History PMH: Anxiety, Back Problems, Bipolar Disorder, Depression, Hepatitis Denies: Diabetes, HIV, HTN, Chronic Kidney Disease, Seizures, Sexually Transmitted Disease Surgical History: Endoscopy - [facility] Procedures CLOSURE SKIN & SUBCUTANEOUS NEC (06/14/13) DETOXIFICATION SERVICES FOR SUBSTANCE ABUSE TREATMENT (04/01/18) GROUP COLLAR TRIMMER FOR SUBSTANCE ABUSE TREATMENT, PSYCHOEDUCATION (04/01/18) GROUP COLLAR TRIMMER FOR SUBSTANCE ABUSE, COGNITIVE BEHAVIORAL (04/01/18) GROUP PSYCHOTHERAPY (04/01/18) INDIV PSYCHOTHERAPY FOR SUBSTANCE ABUSE TREATMENT, SUPPORT (04/01/18) INDIV PSYCHOTHERAPY FOR SUBSTANCE ABUSE, COGNITIV BEHAVIORAL (04/01/18) INDIV PSYCHOTHERAPY FOR SUBSTANCE ABUSE, PSYCHOEDUCATION (04/01/18) INDIVIDUAL PSYCHOTHERAPY, COGNITIVE-BEHAVIORAL (04/01/18) INDIVIDUAL PSYCHOTHERAPY, SUPPORTIVE (04/01/18) TETANUS TOXOID ADMINIST (06/14/13) Family History: States: Unknown Family Hx - Social History Hx Tobacco Use: No Hx Alcohol Use: Yes Hx Substance Use: Yes - Immunization History Hx Tetanus Toxoid Vaccination: No Hx Influenza Vaccination: No Hx Pneumococcal Vaccination: No Review Of Systems Constitutional: Negative for: Fever, Chills Cardiovascular: Negative for: Chest Pain, Palpitations Respiratory: Negative for: Cough, Shortness of Breath Gastrointestinal: Positive for: Nausea. Negative for: Vomiting, Abdominal Pain Skin: Negative for: Rash, Lesions, Jaundice, Bruising Neurological: Negative for: Weakness, Numbness Psych: Positive for: Withdrawal (heroin ) Physical Exam - Physical Exam Appears: Non-toxic, No Acute Distress Skin: Warm, Dry Head: Normacephalic Eye(s): bilateral: Normal Inspection Oral Mucosa: Moist Neck: Supple Chest: Symmetrical, No Deformity Cardiovascular: Rhythm Regular Respiratory: No Accessory Muscle Use Extremity: Normal ROM Neurological/Psych: Oriented x3 ED Course And Treatment O2 Sat by Pulse Oximetry: 96 (on RA) Pulse Ox Interpretation: Normal Progress Note: Catapres PO and Zofran PO given. Reevaluation Time: 05:12 Disposition Counseled Patient/Family Regarding: Studies Performed, Diagnosis, Need For Followup - Disposition Referrals: [facility] at [facility] [Outside] Disposition: HOME/ ROUTINE Disposition Time: 04:07 Condition: FAIR Instructions: Polysubstance Abuse (DC) Forms: [employer] (Kazakh) - Clinical Impression Clinical Impression: Polysubstance abuse - Scribe Statement The provider has reviewed the documentation as recorded by the Scribe (Danielle Curtis) Provider Attestation: All medical record entries made by the Scribe were at my direction and personally dictated by me. I have reviewed the chart and agree that the record accurately reflects my personal performance of the history, physical exam, medical decision making, and the department course for this patient. I have also personally directed, reviewed, and agree with the discharge instructions and disposition.
[2018-07-04 05:48] VITALS: BP 146/70; PULSE 92; TEMP 98.2; O2SAT 99
== END 2018-07-04 05:48 | disposition home or self-care (01) ==
LOC: C.ER 03:37
DX: F19.10 Other psychoactive substance abuse, uncomplicated (principal)

== ENCOUNTER 2018-07-04 12:34 | Inpatient (IN) | payer MEDICAID ==
[2018-07-04 12:35] VITALS: BMI 25.7
[2018-07-04 14:06] LABS: BASO # 0.1 K/uL (0.0-0.2); BASO % 0.6 % (0.0-2.0); EOS # 0.3 K/uL (0.0-0.7); EOS % 3.5 % (0.0-4.0); HEMOGLOBIN 16.3 g/dL (12.0-18.0); LYMPH # 2.3 K/uL (1.0-4.3); LYMPH % 29.2 % (20.0-40.0); MEAN CELL VOLUME 91.1 fL (80.0-94.0); MEAN CORPUSCULAR HEMOGLOBIN 32.3 pg (27.0-31.0); MEAN CORPUSCULAR HGB CONC 35.5 g/dL (33.0-37.0); MEAN PLATELET VOLUME 9.4 fL (7.2-11.7); MONO # 0.7 K/uL (0.0-0.8); MONO % 8.7 % (0.0-10.0); NEUT # 4.6 K/uL (1.8-7.0); RBC 5.05 Mil/uL (4.40-5.90); RED CELL DISTRIBUTION WIDTH 13.1 % (11.5-14.5)
[2018-07-04 14:26] LABS: ALB/GLOB RATIO 1.3 (1.0-2.1); ALBUMIN 4.6 g/dL (3.5-5.0); ALT/SGPT 35 U/L (21-72); AST/SGOT 29 U/L (17-59); BLOOD UREA NITROGEN 15 mg/dL (9-20); CALCIUM 9.4 mg/dl (8.6-10.4); GFR NON-AFRICAN AMERICAN > 60
[2018-07-04 14:30] LABS: BARBITURATES, UR NEGATIVE (NEGATIVE); BENZODIAZEPINES, UR NEGATIVE (NEGATIVE)
[2018-07-04 14:35] LABS: SQUAMOUS EPITHIAL < 1 /hpf (0-5); URINE BILIRUBIN NEGATIVE (NEGATIVE); URINE BLOOD 1+ (NEGATIVE); URINE CLARITY Clear (Clear); URINE COLOR Yellow (YELLOW); URINE GLUCOSE (UA) NORMAL (Normal); URINE LEUKOCYTE ESTERASE NEG Leu/uL (Negative); URINE PROTEIN NEGATIVE (NEGATIVE)
[2018-07-04 15:02] LABS: OPIATES, UR POSITIVE (NEGATIVE); PHENCYCLIDINE, UR POSITIVE (NEGATIVE)
--- NOTE | 2018-07-04 15:42 | C.PDOC ---
Time Seen by Provider: 07/04/18 13:30 Chief Complaint (Nursing): Substance Abuse Past Medical History Vital Signs: Last Vital Signs Temp 98.0 F 07/04/18 13:15 Pulse 77 07/04/18 13:15 Resp 18 07/04/18 13:15 BP 109/74 07/04/18 13:15 Pulse Ox 98 07/04/18 13:15 - Medical History PMH: Anxiety, Back Problems, Bipolar Disorder, Depression, Hepatitis (C-cured) Denies: Diabetes, HIV, HTN, Chronic Kidney Disease, Seizures, Sexually Transmitted Disease Surgical History: Endoscopy - [facility] Procedures CLOSURE SKIN & SUBCUTANEOUS NEC (06/14/13) DETOXIFICATION SERVICES FOR SUBSTANCE ABUSE TREATMENT (04/01/18) GROUP LICENSED INSURANCE SALES AGENT FOR SUBSTANCE ABUSE TREATMENT, PSYCHOEDUCATION (04/01/18) GROUP LICENSED INSURANCE SALES AGENT FOR SUBSTANCE ABUSE, COGNITIVE BEHAVIORAL (04/01/18) GROUP PSYCHOTHERAPY (04/01/18) INDIV PSYCHOTHERAPY FOR SUBSTANCE ABUSE TREATMENT, SUPPORT (04/01/18) INDIV PSYCHOTHERAPY FOR SUBSTANCE ABUSE, COGNITIV BEHAVIORAL (04/01/18) INDIV PSYCHOTHERAPY FOR SUBSTANCE ABUSE, PSYCHOEDUCATION (04/01/18) INDIVIDUAL PSYCHOTHERAPY, COGNITIVE-BEHAVIORAL (04/01/18) INDIVIDUAL PSYCHOTHERAPY, SUPPORTIVE (04/01/18) TETANUS TOXOID ADMINIST (06/14/13) Family History: States: Unknown Family Hx - Social History Hx Tobacco Use: No Hx Alcohol Use: Yes Hx Substance Use: Yes - Immunization History Hx Tetanus Toxoid Vaccination: No Hx Influenza Vaccination: No Hx Pneumococcal Vaccination: No ED Course And Treatment - Laboratory Results Result Diagrams: 07/04/18 13:53 07/04/18 13:53 O2 Sat by Pulse Oximetry: 98 Disposition Discussed With : Doyle Booth Doctor Will See Patient In The: Hospital Counseled Patient/Family Regarding: Studies Performed, Diagnosis - Disposition Disposition: HOSPITALIZED Disposition Time: 15:42 Condition: FAIR - Clinical Impression Clinical Impression: Drug abuse
--- NOTE | 2018-07-04 15:45 | C.PDOC ---
History Of Present Illness 47yo male, comes to ER requesting detox from opioids. Patient reports last use was yesterday. He denies any suicidal or homicidal ideation. He also offers no medical complaints at present. Time Seen by Provider: 07/04/18 13:30 Chief Complaint (Nursing): Substance Abuse History Per: Patient History/Exam Limitations: no limitations Additional History Per: Patient Past Medical History Reviewed: Historical Data, Nursing Documentation, Vital Signs Vital Signs: Last Vital Signs Temp 98.0 F 07/04/18 13:15 Pulse 77 07/04/18 13:15 Resp 18 07/04/18 13:15 BP 109/74 07/04/18 13:15 Pulse Ox 98 07/04/18 15:46 - Medical History PMH: Anxiety, Back Problems, Bipolar Disorder, Depression, Hepatitis (C-cured) Denies: Diabetes, HIV, HTN, Chronic Kidney Disease, Seizures, Sexually Transmitted Disease Surgical History: Endoscopy - [facility] Procedures CLOSURE SKIN & SUBCUTANEOUS NEC (06/14/13) DETOXIFICATION SERVICES FOR SUBSTANCE ABUSE TREATMENT (04/01/18) GROUP HOUSEKEEPING SUPERVISOR HOTEL FOR SUBSTANCE ABUSE TREATMENT, PSYCHOEDUCATION (04/01/18) GROUP HOUSEKEEPING SUPERVISOR HOTEL FOR SUBSTANCE ABUSE, COGNITIVE BEHAVIORAL (04/01/18) GROUP PSYCHOTHERAPY (04/01/18) INDIV PSYCHOTHERAPY FOR SUBSTANCE ABUSE TREATMENT, SUPPORT (04/01/18) INDIV PSYCHOTHERAPY FOR SUBSTANCE ABUSE, COGNITIV BEHAVIORAL (04/01/18) INDIV PSYCHOTHERAPY FOR SUBSTANCE ABUSE, PSYCHOEDUCATION (04/01/18) INDIVIDUAL PSYCHOTHERAPY, COGNITIVE-BEHAVIORAL (04/01/18) INDIVIDUAL PSYCHOTHERAPY, SUPPORTIVE (04/01/18) TETANUS TOXOID ADMINIST (06/14/13) Family History: States: Unknown Family Hx - Social History Hx Tobacco Use: No Hx Alcohol Use: Yes Hx Substance Use: Yes - Immunization History Hx Tetanus Toxoid Vaccination: No Hx Influenza Vaccination: No Hx Pneumococcal Vaccination: No Review Of Systems Except As Marked, All Systems Reviewed And Found Negative. Constitutional: Negative for: Fever, Chills Cardiovascular: Negative for: Chest Pain Respiratory: Negative for: Shortness of Breath Gastrointestinal: Negative for: Abdominal Pain Neurological: Negative for: Weakness, Numbness Psych: Negative for: Suicidal ideation Physical Exam - Physical Exam Appears: Non-toxic, No Acute Distress Skin: Normal Color, Warm, Dry Head: Atraumatic, Normacephalic Eye(s): bilateral: Normal Inspection Neck: Normal ROM, Supple Chest: Symmetrical Cardiovascular: Rhythm Regular Respiratory: Normal Breath Sounds Gastrointestinal/Abdominal: Normal Exam, Soft Back: Normal Inspection Extremity: Normal ROM Neurological/Psych: Oriented x3, Normal Speech, Normal Cognition, Normal Motor, Normal Sensation ED Course And Treatment - Laboratory Results Result Diagrams: 07/04/18 13:53 07/04/18 13:53 O2 Sat by Pulse Oximetry: 98 (RA) Pulse Ox Interpretation: Normal Medical Decision Making Medical Decision Making: Assessment: Substance abuse Plan: * Labs * Urinalysis 1540 Labs reviewed and show no clinically significant abnormalities. Patient seen and evaluated by crisis team and patient to be admitted under Dr. Booth for detox. Disposition - Disposition Disposition: HOSPITALIZED Disposition Time: 15:42 Condition: FAIR Forms: [employer] ([place]ux[place]bourgish) - Clinical Impression Clinical Impression: Drug abuse - Scribe Statement The provider has reviewed the documentation as recorded by the Hugh Triplett Provider Attestation: All medical record entries made by the Budibcandi were at my direction and personally dictated by me. I have reviewed the chart and agree that the record accurately reflects my personal performance of the history, physical exam, medical decision making, and the department course for this patient. I have also personally directed, reviewed, and agree with the discharge instructions and disposition.
--- NOTE | 2018-07-05 11:33 | PCM.PSYCH ---
Initial Psychiatric Evaluation - Initial Psychiatric Evaluation Type of Admission: Voluntary Legal Status: Capacity Chief Complaint (in patient's own words): "I want to get off of opioid and get psych help" History of Present Illness and Precipitating Events: This is a 47-year-old male, single and unemployed, who lives on his own in [place]. The patient is here for opioid detox and depression. He reports feeling depressed and having mood swings. He also complains about headaches and sweating at nights. The patient stated he has been using opioid since age 21. He also uses alcohol and PCP. He reports smoking cigarette only when he is high. The patient states that he tried detox 4-5 times in the past. He has been hospitalized 4 times for opioid overuse but he denies any past rehabilitations. He reports being in detox 4 months ago but he states that he could not find a place after leaving detox, he went back home and relapsed. Patient reports of withdrawal symptoms including abdominal cramps, anxiety, headaches and sweating. Patient reports irritable mood, but denies any feelings of hopelessness and helplessness, poor sleep and poor appetite. He denies any suicidal ideation or any homicidal ideation. He denies any manic symptoms. He denies any auditory or visual hallucinations or any psychotic symptoms. Current Medications: Active Medications Generic Name Dose Route Start Last Admin Trade Name Freq PRN Reason Stop Dose Admin Hydroxyzine HCl 25 mg 07/05/18 02:46 Atarax PO Q6 PRN Anxiety Trazodone HCl 50 mg 07/04/18 21:25 07/04/18 21:30 Desyrel PO 50 mg HS PRN Administration Insomnia Past Psychiatric History - Past Psychiatric History Previous Treatment History: Inpatient Pertinent Medical Hx (Current Medical&Sleep Prob, Allergies): Allergies Allergy/AdvReac Type Severity Reaction Status Date / Time buprenorphine [From Suboxone] Allergy REDNESS Verified 07/04/18 03:51 naloxone [From Suboxone] Allergy REDNESS Verified 07/04/18 03:51 No Known Home Med 07/04/18 Review of Systems - Review of Systems All systems: reviewed and no additional remarkable complaints except - Psychiatric Psychiatric: Anxiety, Irritability. absent: Suicidal Ideation Mental Status Examination - Personal Presentation Personal Presentation: Looks stated age - Affect Affect: Constricted - Motor Activity Motor Activity: Calm - Reliability in Providing Information Reliability in Providing Information: Fair - Speech Speech: Organized - Mood Mood: Anxious - Formal Thought Process Formal Thought Process: No Impairment - Obsessions/Compulsions Obsessions: No Compulsions: No - Cognitive Functions Orientation: Person, Place, Situation, Time Sensorium: Alert Attention/Concentration: Attentive Abstract Thinking: [place] Estimate of Intelligence: Below average Judgement: Imparied, as evidence by: Poor judgement, Intact, as evidence by: Insight regarding need for hospitalization - Risk Risk: Diminished functioning - Limitations Limitations: Living alone DSM 5 DX - DSM 5 DSM 5 Diagnosis: Opioid withdrawal Opioid use d/o- severe - Recommended/Plan of Treatment Treatment Recommendations and Plan of Treatment: Opioid withdrawal Opioid use d/o- severe Taper with methadone Gabapentin for augmentation if needed As needed medications All risks, benefits and alternatives of the meds discussed, and the pt agreed and understood. Attend groups and activities Supportive therapy and psychoeducation OK for abstinence CBT for relapse prevention Encourage MAT Refer to rehab or IOP, and self-help groups Smoking cessation with [place] Nicotine patch if needed
[2018-07-06] MEDS ORDERED: Aluminum Hydroxide/Magnesium Hydroxide Susp (30 mL) PO PRN (00:32)
--- NOTE | 2018-07-06 12:08 | PCM.PYCHPN ---
Psychiatric Progress Note - Psychiatric Progress Note Patient seen today, length of contact: 16 min Patient Chief Complaint: "I need rehab" Problems Identified/Issues Discussed: The pt is seen, chart reviewed, case discussed with staff. The pt is compliant with medications and reports no side-effects. Symptoms are improving but needs more time to stabilize. Pt attends groups and activities. Support given, psycho-education provided. After care discussed. Medication Change: Yes (detox changes daily) Medical Record Reviewed: Yes Mental Status Examination - Cognitive Function Orientation: Person, Place, Situation, Time Memory: Intact Attention: WNL Concentration: WNL Association: WNL Fund of Knowledge: WNL - Mood Mood: Anxious - Affect Affect: Constricted - Speech Speech: Appropriate - Formal Thought Process Formal Thought Process: No Impairment - Suicidal Ideation Suicidal Ideation: No - Homicidal Ideation Homicidal Ideation: No Goal/Treatment Plan - Goal/Treatment Plan Need for Continued Stay: Discharge may exacerbated symptoms, Severe functional impairment Progress Toward Problem(s) and Goals/Treatment Plan: Taper with methadone Gabapentin for augmentation if needed As needed medications All risks, benefits and alternatives of the meds discussed, and the pt agreed and understood. Attend groups and activities Supportive therapy and psychoeducation ND for abstinence CBT for relapse prevention Encourage MAT Refer to rehab or IOP, and self-help groups Smoking cessation with [place] Nicotine patch if needed Estimated Date of D/C: 07/08/18
--- NOTE | 2018-07-06 13:23 | PCM.BM ---
Addendum entered and electronically signed by Hui Zelaya 07/07/18 14:12: Discharge/Continuing Care - Education Needs Education Needs: Patient Medication, Patient Diagnosis/Disease Process, Patient Coping Skills, Patient Anger Management skills, Patient Placement options, Patient Community resources - Discharge Discharge Criteria: Free of agitation, No longer exhibiting s/s of withdrawal, Reduction of target symptoms Discharge to:: Substance Abuse Rehab - Treatment Team Participation Patient/Family/SO Statement: Taper with methadone Gabapentin for augmentation if needed As needed medications All risks, benefits and alternatives of the meds discussed, and the pt agreed and understood. Attend groups and activities Supportive therapy and psychoeducation NM for abstinence CBT for relapse prevention Encourage MAT Refer to rehab or IOP, and self-help groups Smoking cessation with NM Nicotine patch if needed 07/07/18 14:11 "I wanna try to get in to [facility]..." Discussed with Family/SO: No Was Patient/Family/SO present at Treatment Team Meeting: Yes Family Contact Family involvement: No known Family/SO - Goals for Treatment Patient goals for treatment: Complete detox and apply for inpatient rehab program. Original Note: Treatment Plan Problems - Problems identified on initial assessmt Potential for opioid withdrawal Date Initiated: 07/06/18 Time Initiated: 07:00 Assessment reference: NA Status: Active Treatment assets and liabiliti Patient Assests: cooperative, insightful, motivated, ADL independent, physically healthy, cognitively intact Patient Liabilities: financial problems, relationship conflicts, substance abuse - Milieu Protocol Maintain good personal hygiene: every shift Encourage regular showers, every shift Remind patient to perform daily oral care, every shift Assist patient to perform ADL's Maintain personal safety: every shift Educate patient to report safety concerns to staff, every shift Monitor environment for contraband/sharps Medication safety: Monitor for expected outcome, potential side effects: every shift, Assess barriers to learning: every shift, Assess readiness for medication education: every shift Milieu Narrative: Taper with methadone Gabapentin for augmentation if needed As needed medications All risks, benefits and alternatives of the meds discussed, and the pt agreed and understood. Attend groups and activities Supportive therapy and psychoeducation NM for abstinence CBT for relapse prevention Encourage MAT Refer to rehab or IOP, and self-help groups Smoking cessation with NM Nicotine patch if needed Discharge/Continuing Care - Treatment Team Participation Patient/Family/SO Statement: Taper with methadone Gabapentin for augmentation if needed As needed medications All risks, benefits and alternatives of the meds discussed, and the pt agreed and understood. Attend groups and activities Supportive therapy and psychoeducation NM for abstinence CBT for relapse prevention Encourage MAT Refer to rehab or IOP, and self-help groups Smoking cessation with NM Nicotine patch if needed
--- NOTE | 2018-07-06 16:15 | RAD ---
Date of service: 07/06/2018 HISTORY: Rehab placement. COMPARISON: 11/14/2015. TECHNIQUE: Chest PA and lateral FINDINGS: LUNGS: No active pulmonary disease. PLEURA: No significant pleural effusion identified. No pneumothorax apparent. CARDIOVASCULAR: Normal. OSSEOUS STRUCTURES: No significant abnormalities. VISUALIZED UPPER ABDOMEN: Normal. OTHER FINDINGS: None. IMPRESSION: No active disease. No significant interval change compared to the prior examination(s).
--- NOTE | 2018-07-07 12:27 | PCM.PYCHPN ---
Psychiatric Progress Note - Psychiatric Progress Note Patient seen today, length of contact: 16 min Patient Chief Complaint: "I need rehab" Problems Identified/Issues Discussed: The pt is seen, chart reviewed, case discussed with staff. The pt is compliant with medications and reports no side-effects. Symptoms are improving but needs more time to stabilize. Pt attends groups and activities. Support given, psycho-education provided. After care discussed. Medication Change: Yes (detox changes daily) Medical Record Reviewed: Yes Mental Status Examination - Cognitive Function Orientation: Person, Place, Situation, Time Memory: Intact Attention: WNL Concentration: WNL Association: WNL Fund of Knowledge: WNL - Mood Mood: Anxious - Affect Affect: Constricted - Speech Speech: Appropriate - Formal Thought Process Formal Thought Process: No Impairment - Suicidal Ideation Suicidal Ideation: No - Homicidal Ideation Homicidal Ideation: No Goal/Treatment Plan - Goal/Treatment Plan Need for Continued Stay: Discharge may exacerbated symptoms, Severe functional impairment Progress Toward Problem(s) and Goals/Treatment Plan: Taper with methadone Gabapentin for augmentation if needed As needed medications All risks, benefits and alternatives of the meds discussed, and the pt agreed and understood. Attend groups and activities Supportive therapy and psychoeducation CT for abstinence CBT for relapse prevention Encourage MAT Refer to rehab or IOP, and self-help groups Smoking cessation with CT Nicotine patch if needed Estimated Date of D/C: 07/08/18
--- NOTE | 2018-07-08 08:09 | PCM.PYCHDC ---
Mental Status Examination - Mental Status Examination Orientation: Person Discharge Summary - Discharge Note Consultations:: List each consultation separately and include: 1. Reason for request. 2. Findings. 3. Follow-up Summary of Hospital Course include:: 1. Description of specific treatment plan utilized for patients during their course of treatmen. 2. Summarize the time- course for resolution of acute symptoms and/or regressed behaviors. 3. Describe issues identified and worked on during hospitalization. 4. Describe medication utilized. 5. Describe medical problems identified and treated. 6. Reassessment of suicide risk Summary of Hospital Course: He refused after care, will attend NA only. Risks discussed. - Final Diagnosis (DSM 5) Condition upon Discharge: FAIR Disposition: HOME/ ROUTINE Follow-up Treatment Plan: Taper with methadone Gabapentin for augmentation if needed As needed medications All risks, benefits and alternatives of the meds discussed, and the pt agreed and understood. Attend groups and activities Supportive therapy and psychoeducation SD for abstinence CBT for relapse prevention Encourage MAT Refer to rehab or IOP, and self-help groups Smoking cessation with [place] Nicotine patch if needed Prescriptions/Medication Reconciliation: ARIPiprazole [Abilify] 5 mg PO QPM #30 tab hydrOXYzine HCl [Atarax] 25 mg PO BID PRN #60 tab PRN Reason: Anxiety Mirtazapine [Remeron] 15 mg PO HS #30 tab traZODone [Desyrel] 50 mg PO HS PRN #30 tab PRN Reason: Insomnia
[2018-07-08 09:59] VITALS: BP 118/83; PULSE 83; RESP 19; TEMP 99.1; O2SAT 97
== END 2018-07-08 11:00 | disposition home or self-care (01) | DRG 745 ==
LOC: C.ER 12:34 → C.7D 15:41
PROVIDERS: ADMIT Psychiatry & Neurology Psychiatry; ATTEND Psychiatry & Neurology Psychiatry
PROC: HZ2ZZZZ Detoxification Services for Substance Abuse Treatment (ICD-10-PCS; principal; 2018-07-04)
PROC: HZ52ZZZ Individual Psychotherapy for Substance Abuse Treatment, Cognitive-Behavioral (ICD-10-PCS; 2018-07-04)
PROC: GZHZZZZ Group Psychotherapy (ICD-10-PCS; 2018-07-04)
PROC: HZ59ZZZ Individual Psychotherapy for Substance Abuse Treatment, Supportive (ICD-10-PCS; 2018-07-04)
PROC: HZ56ZZZ Individual Psychotherapy for Substance Abuse Treatment, Psychoeducation (ICD-10-PCS; 2018-07-04)
PROC: HZ42ZZZ Group Counseling for Substance Abuse Treatment, Cognitive-Behavioral (ICD-10-PCS; 2018-07-04)
PROC: HZ46ZZZ Group Counseling for Substance Abuse Treatment, Psychoeducation (ICD-10-PCS; 2018-07-04)
PROC: GZ58ZZZ Individual Psychotherapy, Cognitive-Behavioral (ICD-10-PCS; 2018-07-04)
PROC: GZ56ZZZ Individual Psychotherapy, Supportive (ICD-10-PCS; 2018-07-04)
DX: F11.23 Opioid dependence with withdrawal (principal); F31.9 Bipolar disorder, unspecified; F16.90 Hallucinogen use, unspecified, uncomplicated; F41.9 Anxiety disorder, unspecified; F17.210 Nicotine dependence, cigarettes, uncomplicated; Z86.19 Personal history of other infectious and parasitic diseases

== ENCOUNTER 2018-10-13 19:31 | Inpatient (IN) | payer MEDICAID ==
[2018-10-13 19:41] VITALS: BMI 24.3
[2018-10-13] MEDS ORDERED: Tdap Vaccine 0.5 ml Vial (10-64 yrs) IM ONE (19:41)
[2018-10-13] MEDS ORDERED: Epinephrine /Lidocaine HCL 1:100,000/2% 30 ml INJ STA (19:41)
[2018-10-13] MEDS ORDERED: Lidocaine 2% w Epi 1:100,000 Inj IJ ONE (19:50)
[2018-10-13] MEDS ORDERED: Tetanus/Diphtheria Toxoids 0.5 ml Syringe IM ONE (19:50)
[2018-10-13 22:01] LABS: BASO % 0.4 % (0.0-2.0); EOS # 0.1 K/uL (0.0-0.7); EOS % 1.1 % (0.0-4.0); HEMOGLOBIN 15.8 g/dL (12.0-18.0); LYMPH # 1.5 K/uL (1.0-4.3); LYMPH % 21.5 % (20.0-40.0); MEAN CELL VOLUME 94.1 fL (80.0-94.0); MEAN CORPUSCULAR HEMOGLOBIN 32.3 pg (27.0-31.0); MEAN CORPUSCULAR HGB CONC 34.3 g/dL (33.0-37.0); MEAN PLATELET VOLUME 8.4 fL (7.2-11.7); MONO # 0.5 K/uL (0.0-0.8); MONO % 7.2 % (0.0-10.0); NEUT # 4.9 K/uL (1.8-7.0); NEUT % 69.8 % (50.0-75.0); NRBC % 0.1 % (0.0-2.0); RBC 4.9 Mil/uL (4.40-5.90); RED CELL DISTRIBUTION WIDTH 13.4 % (11.5-14.5)
[2018-10-13 22:12] LABS: URINE BACTERIA RARE (<OCC); URINE BILIRUBIN NEGATIVE (NEGATIVE); URINE BLOOD NEGATIVE (NEGATIVE); URINE CLARITY Clear (Clear); URINE COLOR Colorless (YELLOW); URINE GLUCOSE (UA) NORMAL (Normal); URINE LEUKOCYTE ESTERASE NEG Leu/uL (Negative); URINE PROTEIN NEGATIVE (NEGATIVE); URINE UROBILINOGEN NORMAL mg/dL (0.2-1.0)
[2018-10-13 22:16] LABS: BARBITURATES, UR NEGATIVE (NEGATIVE); BENZODIAZEPINES, UR NEGATIVE (NEGATIVE)
[2018-10-13 22:18] LABS: OPIATES, UR POSITIVE (NEGATIVE); PHENCYCLIDINE, UR POSITIVE (NEGATIVE)
[2018-10-13 22:29] LABS: ALB/GLOB RATIO 1.4 (1.0-2.1); ALBUMIN 4.7 g/dL (3.5-5.0); ALT/SGPT 30 U/L (21-72); AST/SGOT 43 U/L (17-59); BLOOD UREA NITROGEN 12 mg/dL (9-20); CALCIUM 8.6 mg/dl (8.6-10.4); GFR NON-AFRICAN AMERICAN > 60
--- NOTE | 2018-10-13 22:49 | C.PDOC ---
History Of Present Illness 48 year old male is brought to the ED by EMS for evaluation of public intoxication and laceration to his chin. Patient states he feel today while intoxicated. Patient was brought in on a stretcher with a hard c collar on. Patient also requesting alcohol detox, admits to recent relapse. Patient denies LOC, visual changes, nausea, vomit, diarrhea, dizziness, weakness, numbness. - HPI Time Seen by Provider: 10/13/18 19:40 Chief Complaint (Nursing): Trauma History Per: Patient History/Exam Limitations: no limitations Onset/Duration Of Symptoms: Hrs Injury Occurred (Timing): Just Before Arrival Location Of Injury: Anterior: Head (chin) Recent travel outside of the [place]: No Additional History Per: Patient - Fall Fall:Prior To Injury: Lost Balance Past Medical History Reviewed: Historical Data, Nursing Documentation, Vital Signs Vital Signs: Last Vital Signs Temp 98.3 F 10/13/18 19:40 Pulse 87 10/13/18 22:18 Resp 18 10/13/18 22:18 BP 124/85 10/13/18 22:18 Pulse Ox 96 10/13/18 22:18 - Medical History PMH: Anxiety, Back Problems, Bipolar Disorder, Depression, Hepatitis (C-cured) Denies: Diabetes, HIV, HTN, Chronic Kidney Disease, Seizures, Sexually Transmitted Disease Surgical History: Endoscopy - [facility] Procedures CLOSURE SKIN & SUBCUTANEOUS NEC (06/14/13) DETOXIFICATION SERVICES FOR SUBSTANCE ABUSE TREATMENT (07/04/18) GROUP EXPLOSIVE ORDNANCE TECHNICIAN FOR SUBSTANCE ABUSE TREATMENT, PSYCHOEDUCATION (07/04/18) GROUP EXPLOSIVE ORDNANCE TECHNICIAN FOR SUBSTANCE ABUSE, COGNITIVE BEHAVIORAL (07/04/18) GROUP PSYCHOTHERAPY (07/04/18) INDIV PSYCHOTHERAPY FOR SUBSTANCE ABUSE TREATMENT, SUPPORT (07/04/18) INDIV PSYCHOTHERAPY FOR SUBSTANCE ABUSE, COGNITIV BEHAVIORAL (07/04/18) INDIV PSYCHOTHERAPY FOR SUBSTANCE ABUSE, PSYCHOEDUCATION (07/04/18) INDIVIDUAL PSYCHOTHERAPY, COGNITIVE-BEHAVIORAL (07/04/18) INDIVIDUAL PSYCHOTHERAPY, SUPPORTIVE (07/04/18) TETANUS TOXOID ADMINIST (06/14/13) Family History: States: Unknown Family Hx - Social History Hx Tobacco Use: No Hx Alcohol Use: Yes Hx Substance Use: Yes - Immunization History Hx Tetanus Toxoid Vaccination: No Hx Influenza Vaccination: No Hx Pneumococcal Vaccination: No Review Of Systems Constitutional: Negative for: Fever, Chills Eyes: Negative for: Vision Change Cardiovascular: Negative for: Chest Pain Respiratory: Negative for: Shortness of Breath Gastrointestinal: Negative for: Nausea, Vomiting, Abdominal Pain Skin: Positive for: Other (laceration) Neurological: Negative for: Weakness, Numbness, Headache, Dizziness Physical Exam - Physical Exam Appears: Non-toxic, No Acute Distress, Other ([place]lin) Skin: Normal Color, Warm, Dry Head: Atraumatic, Normacephalic, Laceration (4 cm irregular laceration to chin ) Eye(s): bilateral: Normal Inspection, PERRL, EOMI Oral Mucosa: Moist Tongue: No Bleeding Lips: No Laceration Teeth: Normal Dentition, No Tender To Palpation, No Loose Gingiva: No Bleeding Neck: Normal ROM, No Midline Cervical Tenderness, Supple Chest: Symmetrical Cardiovascular: Rhythm Regular Respiratory: Normal Breath Sounds, No Rales, No Rhonchi, No Wheezing Gastrointestinal/Abdominal: Soft, No Tenderness, No Guarding, No Rebound Extremity: Normal ROM, No Tenderness, No Swelling Neurological/Psych: Oriented x3, Normal Speech, Normal Cognition, Normal Motor, Normal Sensation Gait: Steady ED Course And Treatment - Laboratory Results Result Diagrams: 10/13/18 21:57 10/13/18 21:57 Lab Interpretation: Abnormal (tox + PCP, opiates, ETOH 197 H) O2 Sat by Pulse Oximetry: 96 (ON RA) Pulse Ox Interpretation: Normal - CT Scan/US CT head Other Rad Studies (CT/US): Read By Radiologist, Radiology Report Reviewed CT/US Interpretation: EXAM: CT Maxillofacial without Intravenous Contrast. CLI NICAL HISTORY: Trauma to chin/recent jaw surgery. TECHNIQUE: Axial computed tomography images of the face without intravenous contrast. Sagittal and coronal reformatted images were generated. CONTRAST: Without. COMPARISON: None provided. FINDINGS: BONES: No acute fracture or aggressive appearing osseous lesion. The mandible is intact. SOFT TISSUES: The soft tissues are unremarkable. SINUSES: Bilateral ethmoid and maxillary sinustiis. Remaining sinuses are clear. ORBITS: The orbits are normal. No retrobulbar hematoma or mass. IMPRESSION: Bilateral ethmoid and maxillary sinustiis. Unremarkable maxillofacial CT otherwise. . Electronically signed on Oct 13, 2018 10:42:00 PM EST by: Bill Marrero M.D., MIRA Certified By ABR & CBCCT. Fellowship Trained MRI and CT Specialist Reevaluation Time: 23:24 Reassessment Condition: Improved - Physician Consult Information Outcome Of Conversation: 2320: ok to detox per Crisis Laceration - Laceration Repair chin Wound Length (In cm): 4 Description Of Wound: Irregular Wound Cleansed With: Betadine Wound Examination: Irrigated With Saline, No FB With Wound Exploration, No Tendon Injury With Wound Exploration Wound Debridement/Revision: Wound Debrided, Wound Margins Revised Wound Closure: [place] (x6) Wound Complexity: Simple Medical Decision Making Medical Decision Making: Plan: * tetanus * Labs * UA * Crisis eval * CT head Polysubstance Abuse: persistent, recurrent polysubstance abuse and falls since 2010 PCP, opiate, and alcohol + Chin lac Max/Face no acute fx 8 yu to chin Tdap given No abx required. staple removal 7-10 days. Disposition Doctor Will See Patient In The: Hospital Counseled Patient/Family Regarding: Studies Performed, Diagnosis - Disposition Disposition: HOSPITALIZED Disposition Time: 23:26 Condition: GOOD - Clinical Impression Clinical Impression: Laceration of chin without complication, Polysubstance (including opioids) dependence, binge pattern, PCP (phencyclidine) abuse - Scribe Statement The provider has reviewed the documentation as recorded by the Scribe Nikunj Nicole All medical record entries made by the Scribe were at my direction and personally dictated by me. I have reviewed the chart and agree that the record accurately reflects my personal performance of the history, physical exam, m edical decision making, and the department course for this patient. I have also personally directed, reviewed, and agree with the discharge instructions and disposition.
[2018-10-14] MEDS ORDERED: Aluminum Hydroxide/Magnesium Hydroxide Susp (30 mL) PO PRN (00:14)
--- NOTE | 2018-10-14 02:23 | PCM.BM ---
<Gorge,Trinh D - Last Filed: 10/14/18 02:20> Treatment Plan Problems - Problems identified on initial assessmt Anxiety related to substance use Date Initiated: 10/14/18 Time Initiated: 02: Assessment reference: NA Status: Active Denial Date Initiated: 10/14/18 Time Initiated: 02:22 Assessment reference: NA Status: Active knowledge deficit Alcohol use Date Initiated: 10/14/18 Assessment reference: NA Treatment assets and liabiliti Patient Assests: cooperative, insightful, motivated, ADL independent, physically healthy, cognitively intact <Hui Zelaya - Last Filed: 10/14/18 14:40> Family Contact Family involvement: No known Family/SO - Goals for Treatment Patient goals for treatment: Complete detox and transition to outpatient MH and SA treatments. Discharge/Continuing Care - Education Needs Education Needs: Patient Medication, Patient Diagnosis/Disease Process, Patient Coping Skills, Patient Anger Management skills, Patient Placement options, Patient Community resources - Discharge Discharge Criteria: No longer exhibiting s/s of withdrawal, Reduction of target symptoms Discharge to:: Home - Treatment Team Participation Patient/Family/SO Statement: 10/14/18 14:46 "I wanna do both programs...1 for mental health and the other for my addiction..." Discussed with Family/SO: No Was Patient/Family/SO present at Treatment Team Meeting: Yes <Yuri Rubalcava M - Last Filed: 10/14/18 17:16> - Diagnosis (1) Alcohol use disorder, severe, dependence Status: Acute Interventions: 10/14/18 17:14 * Assess 7x/week regarding severity of withdrawal * Educate regarding risks, benefits, side effects and alternatives of medications * Use Motivational Interviewing for abstinence * Use CBT for relapse prevention * Medication management for withdrawal symptoms * Encourage medication assisted treatment (2) Opioid use disorder, severe, dependence Status: Acute Interventions: 10/14/18 17:14 * Assess 7x/week regarding severity of withdrawal * Educate regarding risks, benefits, side effects and alternatives of medications * Use Motivational Interviewing for abstinence * Use CBT for relapse prevention * Medication management for withdrawal symptoms * Encourage medication assisted treatment (3) Bipolar 1 disorder, depressed Status: Acute Interventions: 10/14/18 17:15 * Assess/adjust medications daily and /or as needed * See patient on an individual basis 7x/week to assess level of manic behaviors and stability * Discuss risks, benefits, side effects and alternatives of medications
[2018-10-14] MEDS: Multiple Vitamins Tab PO SCH (09:41)
--- NOTE | 2018-10-14 09:45 | CT ---
Date of service: 10/13/2018 PROCEDURE: CT MAXILLOFACIAL BONES WITHOUT CONTRAST HISTORY: fall, chin lac, recent jaw surgery COMPARISON: None available. TECHNIQUE: Contiguous axial CT images of the maxillofacial bones were obtained. Coronal and sagittal reformats were generated. Radiation dose: Total exam DLP = 749.28 mGy-cm. This CT exam was performed using one or more of the following dose reduction techniques: Automated exposure control, adjustment of the mA and/or kV according to patient size, and/or use of iterative reconstruction technique. FINDINGS: NASAL BONES: Age indeterminate but likely chronic nondisplaced nasal bone fractures.. ORBITS: No acute orbital fracture. The globes are symmetric and normal in appearance. PARANASAL SINUSES/ MASTOIDS: There is moderate polypoid mucosal thickening in the paranasal sinuses with aerosolized secretions in the frontal sinus. There is fluid in bilateral sphenoid chambers. MAXILLA: No acute maxillofacial fracture. MANDIBLE/ TEMPOROMANDIBULAR JOINTS: No acute fracture or dislocation. SKULL BASE: Unremarkable. TEMPORAL BONES: Middle ears and mastoid grossly unremarkable. OTHER FINDINGS: There is soft tissue swelling and defect overlying the chain compatible with an open bone. IMPRESSION: No acute fracture. Chronic pansinusitis. Superimposed fluid in the sphenoid sinus and aerosolized secretions in the frontal sinuses may represent acute sinusitis in the appropriate clinical setting. Clinical follow-up is advised. A preliminary report was provided by [facility].
--- NOTE | 2018-10-14 17:09 | PCM.PSYCH ---
Initial Psychiatric Evaluation - Initial Psychiatric Evaluation Type of Admission: Voluntary Legal Status: Capacity Chief Complaint (in patient's own words): I relapsed on drugs. I want to stop drinking alcohol. History of Present Illness and Precipitating Events: Patient is 48 year old, single, unemployed Male with history of bipolar disorder depressed, PCP alcohol and heroin use was admitted for the treatment of withdrawing from alcohol and heroin. He is currently living in an apartment that is supported by "[facility] program- provided by welfare". He is currently unemployed, no children, highest education level of 11th grade from [employer]. Alcohol: Started at 16 years of age, increased gradually up to 10,24 ounces cans of beer and 5 shots daily. Last drink yesterday. Heroine: Started at 19 years of age. Currently he was using 10 bags daily, sniffing. Last used yesterday. Longest period of abstinence was 10 years from 1999 to 2009. Patient reported that he relapsed then stopped. And relapsed again in January 2018. Denied use of any other drugs but old record shows that patient was using PCP also urine drug screen was positive for PCP. Patient reported feeling depressed with decreased sleep and appetite and lost s ome weight. Denied any current suicidal ideations or homicidal ideations. Patient was guarded about his history and it was difficult to obtain information. Most of the history was obtained from previous records. Patient reported noncompliant with treatment. Patient was born in [place] and was attending special ed school. Never and has 3 children. He lives alone and is not working. Current Medications: Active Medications Generic Name Dose Route Start Last Admin Trade Name Freq PRN Reason Stop Dose Admin Al Hydrox/Mg Hydrox/Simethicone 30 ml 10/14/18 00:14 Maalox 30 Ml PO TID PRN Indigestion / Heartburn Chlordiazepoxide 25 mg 10/14/18 00:14 10/14/18 09:41 Librium PO 25 mg Q4H PRN Administration Alcohol Withdrawal Chlordiazepoxide 25 mg 10/14/18 06:00 10/14/18 12:09 Librium PO 10/18/18 05:59 25 mg Q6 RADHA Administration Taper Clonidine HCl 0.1 mg 10/14/18 00:14 Catapres PO Q4H PRN Symptoms of alcohol withdrawl Dicyclomine HCl 10 mg 10/14/18 10:11 Bentyl PO Q6 PRN Muscle spasm Folic Acid 1 mg 10/14/18 10:00 10/14/18 09:41 Folic Acid PO 1 mg DAILY RADHA Administration Ibuprofen 600 mg 10/14/18 10:11 Motrin Tab PO Q6 PRN Pain, moderate (4-7) Loperamide HCl 2 mg 10/14/18 00:14 Imodium PO Q8 PRN Diarrhea Methadone HCl 15 mg 10/15/18 10:00 Methadone PO 10/18/18 09:59 Q24H RADHA Taper Multivitamins 1 tab 10/14/18 10:00 10/14/18 09:41 Hexavitamin PO 1 tab DAILY RADHA Administration Ondansetron HCl 4 mg 10/14/18 00:14 Zofran Tab PO Q8 PRN Nausea/Vomiting Pseudoephedrine HCl 60 mg 10/14/18 00:14 Sudafed Tab PO QID PRN Nasal/Sinus Congestion Thiamine HCl 100 mg 10/14/18 10:00 10/14/18 09:41 Vitamin B1 Tab PO 100 mg DAILY RADHA Administration Trazodone HCl 50 mg 10/14/18 00:14 10/14/18 01:50 Desyrel PO 50 mg HS PRN Administration Insomnia Past Psychiatric History - Past Psychiatric History Previous Treatment History: Inpatient At [facility]: Mostly at [facility]. History of Abuse: None reported History of ETOH/Drug Use: See HPI History of Family Illness: Reported mother has history of depression Pertinent Medical Hx (Current Medical&Sleep Prob, Allergies): Allergies Allergy/AdvReac Type Severity Reaction Status Date / Time buprenorphine [From Suboxone] Allergy REDNESS Verified 07/04/18 03:51 naloxone [From Suboxone] Allergy REDNESS Verified 07/04/18 03:51 ARIPiprazole [Abilify] 5 mg PO QPM #30 tab 07/08/18 Mirtazapine [Remeron] 15 mg PO HS #30 tab 07/08/18 hydrOXYzine HCl [Atarax] 25 mg PO BID PRN #60 tab 07/08/18 traZODone [Desyrel] 50 mg PO HS PRN #30 tab 07/08/18 Hepatitis C Review of Systems - Psychiatric Psychiatric: As Per HPI, Anxiety, Depression Mental Status Examination - Personal Presentation Personal Presentation: Looks stated age - Affect Affect: Depressed - Motor Activity Motor Activity: Calm - Reliability in Providing Information Reliability in Providing Information: Fair - Speech Speech: Organized - Mood Mood: Depressed - Formal Thought Process Formal Thought Process: No Impairment - Hallucinations/Delusions Hallucinations: Other (None reported) Delusions: Other - Obsessions/Compulsions Obsessions: None Compulsions: None - Cognitive Functions Orientation: Person, Place, Situation, Time Sensorium: Alert Attention/Concentration: Attentive Abstract Thinking: [place] Estimate of Intelligence: Average Judgement: Intact, as evidence by: Insight regarding need for hospitalization Memory: Recent intact, as evidence by: Ability to recall events of the day, Remote intact, as evidenced by: Ability to recall historical events - Risk Risk: Withdrawal, Diminished functioning - Strength & Assets Inventory Strength & Assets Inventory: Cooperative - Limitations Limitations: Living alone DSM 5 DX - DSM 5 DSM 5 Diagnosis: Alcohol withdrawal Alcohol use disorder severe Opioid withdrawal Opioid use disorder severe PCP use disorder Bipolar I disorder most recent episode depressed without psychotic features. - Recommended/Plan of Treatment Treatment Recommendations and Plan of Treatment: Patient education. Supportive therapy. CBT for relapse prevention. DE for abstinence. We'll start Librium for alcohol withdrawal symptoms. We'll start methadone for opioid withdrawal symptoms. Other when necessary medications. Patient wants to go to [facility] for follow-up care after discharge from the hospital. Projected ELOS: 4-5 days - Smoking Cessation Smoking Cessation Initiated: No Reason for not providing: Patient doesn't smoke cigarettes
[2018-10-15] MEDS: Multiple Vitamins Tab PO SCH (09:47)
--- NOTE | 2018-10-15 22:07 | PCM.PYCHPN ---
Psychiatric Progress Note - Psychiatric Progress Note Patient seen today, length of contact: 15 minutes Patient Chief Complaint: I am feeling little better. Problems Identified/Issues Discussed: Patient seen, chart reviewed, case discussed with the staff. Issues related to illness and treatment were discussed with the patient and staff. Reported compliant with treatment with no adverse effect. Calm and cooperative. Reported feeling little better. Still has some withdrawal symptoms including sweating, body aches, decreased sleep, and some shaking in hands. Awake, alert and oriented x3. Mood reported as anxious. Affect appropriate. Memory intact. Aftercare discussed with the patient. Patient needs more time for stabilization. Denied any delusions, auditory or visual hallucinations, suicidal ideations or homicidal ideations at the time of evaluation. Medical Problems: Hepatitis C Diagnostic Results: Reviewed Medication Change: No Medical Record Reviewed: Yes Mental Status Examination - Cognitive Function Orientation: Person, Place, Situation, Time Memory: Intact Attention: WNL Concentration: WNL Association: WNL Fund of Knowledge: WN Decription of patient's judgement and insights: Fair - Mood Mood: Depressed (Less than before) - Affect Affect: Depressed - Speech Speech: Appropriate - Formal Thought Process Formal Thought Process: No Impairment Psychotic Thoughts and Behaviors: None - Suicidal Ideation Suicidal Ideation: No - Homicidal Ideation Homicidal Ideation: No Goal/Treatment Plan - Goal/Treatment Plan Need for Continued Stay: Remain at risks for inpatient hospitalization, Winifred ramirez may exacerbated symptoms, Severe functional impairment Progress Toward Problem(s) and Goals/Treatment Plan: Patient education. Supportive therapy. CBT for relapse prevention. [place] for abstinence. Continue treatment as before. Patient wants to go to [facility] for follow-up care after discharge from the hospital. Estimated Date of D/C: 10/17/18 - Smoking Cessation Smoking Cessation Initiated: No
[2018-10-16] MEDS: Multiple Vitamins Tab PO SCH (10:04)
--- NOTE | 2018-10-17 08:54 | PCM.PYCHDC ---
Mental Status Examination - Mental Status Examination Orientation: Person Discharge Summary - Discharge Note Consultations:: List each consultation separately and include: 1. Reason for request. 2. Findings. 3. Follow-up Summary of Hospital Course include:: 1. Description of specific treatment plan utilized for patients during their course of treatmen. 2. Summarize the time- course for resolution of acute symptoms and/or regressed behaviors. 3. Describe issues identified and worked on during hospitalization. 4. Describe medication utilized. 5. Describe medical problems identified and treated. 6. Reassessment of suicide risk Summary of Hospital Course: He will go to [facility]. - Final Diagnosis (DSM 5) Condition upon Discharge: GOOD Disposition: HOME/ ROUTINE Prescriptions/Medication Reconciliation: traZODone [Desyrel] 50 mg PO HS PRN #30 tab PRN Reason: Insomnia
[2018-10-17] MEDS: Multiple Vitamins Tab PO SCH (10:34)
[2018-10-17 11:35] VITALS: BP 107/70; PULSE 67; RESP 18; TEMP 97.5; O2SAT 99
== END 2018-10-17 12:15 | disposition home or self-care (01) | DRG 745 ==
LOC: C.ER 19:31 → C.7D 23:27
PROVIDERS: ADMIT Psychiatry & Neurology Psychiatry; ATTEND Psychiatry & Neurology Psychiatry
PROC: HZ2ZZZZ Detoxification Services for Substance Abuse Treatment (ICD-10-PCS; principal; 2018-10-13)
PROC: HZ52ZZZ Individual Psychotherapy for Substance Abuse Treatment, Cognitive-Behavioral (ICD-10-PCS; 2018-10-13)
PROC: HZ59ZZZ Individual Psychotherapy for Substance Abuse Treatment, Supportive (ICD-10-PCS; 2018-10-13)
PROC: HZ56ZZZ Individual Psychotherapy for Substance Abuse Treatment, Psychoeducation (ICD-10-PCS; 2018-10-13)
PROC: HZ42ZZZ Group Counseling for Substance Abuse Treatment, Cognitive-Behavioral (ICD-10-PCS; 2018-10-13)
PROC: HZ46ZZZ Group Counseling for Substance Abuse Treatment, Psychoeducation (ICD-10-PCS; 2018-10-13)
PROC: GZHZZZZ Group Psychotherapy (ICD-10-PCS; 2018-10-13)
PROC: GZ58ZZZ Individual Psychotherapy, Cognitive-Behavioral (ICD-10-PCS; 2018-10-13)
PROC: GZ56ZZZ Individual Psychotherapy, Supportive (ICD-10-PCS; 2018-10-13)
DX: F11.23 Opioid dependence with withdrawal (principal); F10.230 Alcohol dependence with withdrawal, uncomplicated; F10.220 Alcohol dependence with intoxication, uncomplicated; F16.20 Hallucinogen dependence, uncomplicated; S01.81XA Laceration without foreign body of other part of head, initial encounter; Y28.9XXA Contact with unspecified sharp object, undetermined intent, initial encounter; Y90.6 Blood alcohol level of 120-199 mg/100 ml; F31.30 Bipolar disorder, current episode depressed, mild or moderate severity, unspecified; Z81.8 Family history of other mental and behavioral disorders; Z91.19 Patient's noncompliance with other medical treatment and regimen; Z86.19 Personal history of other infectious and parasitic diseases

== ENCOUNTER 2018-10-20 16:06 | Emergency (ER) | payer MEDICAID ==
[2018-10-20 16:09] VITALS: BMI 27.4
[2018-10-20 16:14] VITALS: BP 121/83; PULSE 61; RESP 18; TEMP 97.6; O2SAT 100
--- NOTE | 2018-10-20 16:17 | C.PDOC ---
History Of Present Illness 48 y/o male presents to the ED for staple removal from chin. Patient states the yu were placed on 10/13. No other complaints offered. Time Seen by Provider: 10/20/18 16:11 Chief Complaint (Nursing): Suture/Staple Removal History Per: Patient History/Exam Limitations: no limitations Onset/Duration Of Symptoms: Days Ago Current Symptoms Are (Timing): Still Present Past Medical History Reviewed: Historical Data, Nursing Documentation, Vital Signs - Medical History PMH: Anxiety, Back Problems, Bipolar Disorder, Depression, Hepatitis (C-cured) Denies: Diabetes, HIV, HTN, Chronic Kidney Disease, Seizures, Sexually Transmitted Disease Surgical History: Endoscopy - [facility] Procedures CLOSURE SKIN & SUBCUTANEOUS NEC (06/14/13) DETOXIFICATION SERVICES FOR SUBSTANCE ABUSE TREATMENT (10/13/18) GROUP EXTENSION ASSOCIATE FOR SUBSTANCE ABUSE TREATMENT, PSYCHOEDUCATION (10/13/18) GROUP EXTENSION ASSOCIATE FOR SUBSTANCE ABUSE, COGNITIVE BEHAVIORAL (10/13/18) GROUP PSYCHOTHERAPY (10/13/18) INDIV PSYCHOTHERAPY FOR SUBSTANCE ABUSE TREATMENT, SUPPORT (10/13/18) INDIV PSYCHOTHERAPY FOR SUBSTANCE ABUSE, COGNITIV BEHAVIORAL (10/13/18) INDIV PSYCHOTHERAPY FOR SUBSTANCE ABUSE, PSYCHOEDUCATION (10/13/18) INDIVIDUAL PSYCHOTHERAPY, COGNITIVE-BEHAVIORAL (10/13/18) INDIVIDUAL PSYCHOTHERAPY, SUPPORTIVE (10/13/18) TETANUS TOXOID ADMINIST (06/14/13) Family History: States: Unknown Family Hx - Social History Hx Tobacco Use: No Hx Alcohol Use: Yes Hx Substance Use: Yes - Immunization History Hx Tetanus Toxoid Vaccination: No Hx Influenza Vaccination: No Hx Pneumococcal Vaccination: No Review Of Systems Except As Marked, All Systems Reviewed And Found Negative. Constitutional: Negative for: Fever, Chills Skin: Positive for: Lesions (healing wound) Physical Exam - Physical Exam Appears: Well, Non-toxic, No Acute Distress Skin: Warm, Dry Head: Atraumatic, Normacephalic, Other (Clean, dry, intact healing wound to his chin with 6 yu) Eye(s): bilateral: Normal Inspection, PERRL, EOMI Nose: Normal Oral Mucosa: Moist Pulses: Left Radial: Normal, Right Radial: Normal Neurological/Psych: Oriented x3, Normal Speech ED Course And Treatment O2 Sat by Pulse Oximetry: 100 (RA) Pulse Ox Interpretation: Normal Medical Decision Making Medical Decision Making: Impression: visit for staple removal Plan: Yu were removed by medical student, without difficulty, examined by me Patient is stable for d/c home. Disposition - Disposition Disposition: HOME/ ROUTINE Disposition Time: 16:00 Condition: STABLE Additional Instructions: return to er with worsening symptom or concerns. Instructions: Staple Removal Forms: [employer] (Danish) - Clinical Impression Clinical Impression: Removal of staple - Scribe Statement The provider has reviewed the documentation as recorded by the Hugh Justin Provider Attestation: All medical record entries made by the Hugh were at my direction and personally dictated by me. I have reviewed the chart and agree that the record accurately reflects my personal performance of the history, physical exam, medical decision making, and the department course for this patient. I have also personally directed, reviewed, and agree with the discharge instructions and disposition.
== END 2018-10-20 16:30 | disposition home or self-care (01) ==
LOC: C.ER 16:06
DX: Z48.02 Encounter for removal of sutures (principal)

== ENCOUNTER 2018-12-02 09:03 | Inpatient (IN) | payer MEDICAID ==
[2018-12-02 09:03] VITALS: BMI 27.4
[2018-12-02 10:54] LABS: BASO % 0.6 % (0.0-2.0); EOS # 0.2 K/uL (0.0-0.7); EOS % 4.8 % (0.0-4.0); HEMOGLOBIN 14.5 g/dL (12.0-18.0); LYMPH # 1.3 K/uL (1.0-4.3); LYMPH % 27.1 % (20.0-40.0); MEAN CORPUSCULAR HEMOGLOBIN 32.6 pg (27.0-31.0); MEAN PLATELET VOLUME 8.7 fL (7.2-11.7); MONO # 0.5 K/uL (0.0-0.8); MONO % 11.4 % (0.0-10.0); NEUT # 2.7 K/uL (1.8-7.0); NEUT % 56.1 % (50.0-75.0); RBC 4.44 Mil/uL (4.40-5.90); RED CELL DISTRIBUTION WIDTH 13.1 % (11.5-14.5); WHITE BLOOD COUNT 4.8 K/uL (4.8-10.8)
[2018-12-02 10:58] LABS: URINE BILIRUBIN NEGATIVE (NEGATIVE); URINE BLOOD NEGATIVE (NEGATIVE); URINE CLARITY Clear (Clear); URINE COLOR Yellow (YELLOW); URINE GLUCOSE (UA) NORMAL (Normal); URINE LEUKOCYTE ESTERASE NEG Leu/uL (Negative); URINE PROTEIN NEGATIVE (NEGATIVE); URINE UROBILINOGEN NORMAL mg/dL (0.2-1.0)
[2018-12-02 11:11] LABS: ALB/GLOB RATIO 1.4 (1.0-2.1); ALBUMIN 4.3 g/dL (3.5-5.0); ALT/SGPT 353 U/L (21-72); AST/SGOT 270 U/L (17-59); BLOOD UREA NITROGEN 15 mg/dL (9-20); CALCIUM 9.2 mg/dl (8.6-10.4); GFR NON-AFRICAN AMERICAN > 60
[2018-12-02 11:19] LABS: BARBITURATES, UR NEGATIVE (NEGATIVE); BENZODIAZEPINES, UR NEGATIVE (NEGATIVE)
--- NOTE | 2018-12-02 11:49 | C.PDOC ---
History Of Present Illness 48 year old male presents to the ED requesting heroin and alcohol detox. Patient states he last snorted heroin yesterday, and drank alcohol throughout the day. Patient also admits to feeling depressed, but denies any specific suicida l/homicidal ideation. Patient also complains of nausea, epigastric pain and reports having one episode of vomiting. Patient denies fever, chills, chest pain and shortness of breath. Time Seen by Provider: 12/02/18 09:21 Chief Complaint (Nursing): Substance Abuse History Per: Patient History/Exam Limitations: no limitations Onset/Duration Of Symptoms: Hrs Current Symptoms Are (Timing): Still Present Modifying Factor(s): Alcohol, Other (heroin) Associated Symptoms: Depression. denies: Suicidal Thoughts, Suicidal Plan Involuntary Hold By: None Recent travel outside of the [place]: No Additional History Per: Patient Past Medical History Reviewed: Historical Data, Nursing Documentation, Vital Signs Vital Signs: Last Vital Signs Temp 98.6 F 12/02/18 09:09 Pulse 73 12/02/18 09:09 Resp 18 12/02/18 09:09 BP 131/88 12/02/18 09:09 Pulse Ox 97 12/02/18 09:09 - Medical History PMH: Anxiety, Back Problems, Bipolar Disorder, Depression, Hepatitis (C-cured) Denies: Diabetes, HIV, HTN, Chronic Kidney Disease, Seizures, Sexually Transmitted Disease Surgical History: Endoscopy - [facility] Procedures CLOSURE SKIN & SUBCUTANEOUS NEC (06/14/13) DETOXIFICATION SERVICES FOR SUBSTANCE ABUSE TREATMENT (10/13/18) GROUP MANAGING MANAGER FOR SUBSTANCE ABUSE TREATMENT, PSYCHOEDUCATION (10/13/18) GROUP MANAGING MANAGER FOR SUBSTANCE ABUSE, COGNITIVE BEHAVIORAL (10/13/18) GROUP PSYCHOTHERAPY (10/13/18) INDIV PSYCHOTHERAPY FOR SUBSTANCE ABUSE TREATMENT, SUPPORT (10/13/18) INDIV PSYCHOTHERAPY FOR SUBSTANCE ABUSE, COGNITIV BEHAVIORAL (10/13/18) INDIV PSYCHOTHERAPY FOR SUBSTANCE ABUSE, PSYCHOEDUCATION (10/13/18) INDIVIDUAL PSYCHOTHERAPY, COGNITIVE-BEHAVIORAL (10/13/18) INDIVIDUAL PSYCHOTHERAPY, SUPPORTIVE (10/13/18) TETANUS TOXOID ADMINIST (06/14/13) Family History: States: Unknown Family Hx - Social History Hx Tobacco Use: No Hx Alcohol Use: Yes Hx Substance Use: Yes - Immunization History Hx Tetanus Toxoid Vaccination: Yes Hx Influenza Vaccination: Yes Hx Pneumococcal Vaccination: No Review Of Systems Constitutional: Negative for: Fever, Chills Cardiovascular: Negative for: Chest Pain Respiratory: Negative for: Shortness of Breath Gastrointestinal: Positive for: Nausea, Vomiting, Abdominal Pain (epigastric ) Psych: Positive for: Depression, Other (alcohol and heroin detox ). Negative for: Suicidal ideation Physical Exam - Physical Exam Appears: Non-toxic, No Acute Distress, Other (uncomfortable ) Skin: Normal Color, Warm Head: Atraumatic, Normacephalic Eye(s): bilateral: Normal Inspection Oral Mucosa: Moist Neck: Supple Chest: Symmetrical, No Deformity, No Tenderness Cardiovascular: Rhythm Regular, No Murmur Respiratory: Normal Breath Sounds, No Rales, No Rhonchi, No Wheezing Gastrointestinal/Abdominal: Soft, Tenderness (mild, epigastric ), No Guarding, No Rebound, Other (negative De Los Santos's sign, negative McBurney's point tenderness ) Extremity: Normal ROM, Capillary Refill (less than 2 seconds ) Neurological/Psych: Oriented x3, Normal Speech, Normal Cognition ED Course And Treatment - Laboratory Results Result Diagrams: 12/02/18 10:51 12/02/18 10:51 Lab Results: Total Bilirubin 0.4 mg/dL (0.2-1.3) 12/02/18 10:51 AST 270 U/L (17-59) H D 12/02/18 10:51 ALT 353 U/L (21-72) H D 12/02/18 10:51 Alkaline Phosphatase 78 U/L (38-126) 12/02/18 10:51 Total Protein 7.3 g/dL (6.3-8.3) 12/02/18 10:51 Albumin 4.3 g/dL (3.5-5.0) 12/02/18 10:51 Globulin 3.0 gm/dL (2.2-3.9) 12/02/18 10:51 Albumin/Globulin Ratio 1.4 (1.0-2.1) 12/02/18 10:51 Urine Color Yellow (YELLOW) 12/02/18 10:51 Urine Clarity Clear (Clear) 12/02/18 10:51 Urine pH 6.0 (5.0-8.0) 12/02/18 10:51 Ur Specific [place] 1.017 (1.003-1.030) 12/02/18 10:51 Urine Protein Negative mg/dL (NEGATIVE) 12/02/18 10:51 Urine Glucose (UA) Normal mg/dL (Normal) 12/02/18 10:51 Urine Ketones Negative mg/dL (NEGATIVE) 12/02/18 10:51 Urine Blood Negative (NEGATIVE) 12/02/18 10:51 Urine Nitrate Negative (NEGATIVE) 12/02/18 10:51 Urine Bilirubin Negative (NEGATIVE) 12/02/18 10:51 Urine Urobilinogen Normal mg/dL (0.2-1.0) 12/02/18 10:51 Ur Leukocyte Esterase Neg Rosie/uL (Negative) 12/02/18 10:51 Urine WBC (Auto) < 1 /hpf (0-5) 12/02/18 10:51 Urine RBC (Auto) 1 /hpf (0-3) 12/02/18 10:51 O2 Sat by Pulse Oximetry: 97 (on RA) Pulse Ox Interpretation: Normal Progress Note: Blood work, UA, UDS ordered and reviewed. 11:40am - Patient medically cleared. Disposition - Disposition Disposition: HOSPITALIZED - Scribe Statement The provider has reviewed the documentation as recorded by the Scribe (Danielle Curtis) Provider Attestation: All medical record entries made by the Scribe were at my direction and personally dictated by me. I have reviewed the chart and agree that the record accurately reflects my personal performance of the history, physical exam, medical decision making, and the department course for this patient. I have also personally directed, reviewed, and agree with the discharge instructions and disposition.
[2018-12-02 12:01] LABS: OPIATES, UR POSITIVE (NEGATIVE); PHENCYCLIDINE, UR POSITIVE (NEGATIVE)
--- NOTE | 2018-12-02 13:55 | PCM.PSYCH ---
Initial Psychiatric Evaluation - Initial Psychiatric Evaluation Type of Admission: Voluntary Legal Status: Capacity Chief Complaint (in patient's own words): "I'm withdrawing" History of Present Illness and Precipitating Events: Patient is 48 year old, single, unemployed Male with history of bipolar disorder depressed, PCP, alcohol and heroin use was admitted for the treatment of withdrawing from alcohol and heroin. He is currently living alone in an apartment that is supported by "[facility] program- provided by welfare". He is currently unemployed, single with 3 children, highest education level of 11th grade from [employer]. He is known from previous admissions. Alcohol: Started at 16 years of age, increased gradually up to 10 of the 24- ounce cans of beer and 5 shots daily. Last drink yesterday. Heroin: Started at 19 years of age. Currently he was using 8-10 bags daily, sniffing. Last used yesterday. He also admitted to using methadone "a little" recently b/c of withdrawals. Longest period of abstinence was 10 years from 1999 to 2009. Patient reported that he relapsed then stopped. And relapsed again in January 2018. Pt also smokes PCP sometimes. Patient reported feeling depressed with sadness, anhedonia, decreased sleep and appetite and lost some weight. He has suicidal ideations but denies any plan or intention and agrees to follow safety plan. Patient reported noncompliant with treatment. Denies major medical issues. Current Medications: Active Medications Generic Name Dose Route Start Last Admin Trade Name Freq PRN Reason Stop Dose Admin Al Hydrox/Mg Hydrox/Simethicone 30 ml 12/02/18 13:40 Maalox 30 Ml PO TID PRN Indigestion / Heartburn Clonidine HCl 0.1 mg 12/02/18 14:00 Catapres PO Q4H PRN Symptoms of alcohol withdrawl Folic Acid 1 mg 12/02/18 14:00 Folic Acid PO DAILY RADHA Gabapentin 400 mg 12/02/18 14:00 Neurontin PO TID RADHA Hydroxyzine HCl 50 mg 12/02/18 13:46 Atarax PO Q6H PRN Anxiety Ibuprofen 600 mg 12/02/18 13:46 Motrin Tab PO Q6H PRN Pain, moderate (4-7) Loperamide HCl 2 mg 12/02/18 13:40 Imodium PO Q8 PRN Diarrhea Lorazepam 1 mg 12/02/18 14:00 Ativan PO Q4H PRN Symptoms of alcohol withdrawl Lorazepam 2 mg 12/02/18 14:00 Ativan PO 12/07/18 13:59 .TAPER RADHA Taper Mirtazapine 30 mg 12/02/18 22:00 Remeron PO HS [facility] Multivitamins 1 tab 12/02/18 14:00 Hexavitamin PO DAILY [facility] Ondansetron HCl 4 mg 12/02/18 13:40 Zofran Tab PO Q8 PRN Nausea/Vomiting Thiamine HCl 100 mg 12/02/18 14:00 Vitamin B1 Tab PO DAILY [facility] Past Psychiatric History - Past Psychiatric History Previous Treatment History: Inpatient Pertinent Medical Hx (Current Medical&Sleep Prob, Allergies): Allergies Allergy/AdvReac Type Severity Reaction Status Date / Time buprenorphine [From Suboxone] Allergy REDNESS Verified 12/02/18 09:13 naloxone [From Suboxone] Allergy REDNESS Verified 12/02/18 09:13 ARIPiprazole [Abilify] 5 mg PO QPM #30 tab 07/08/18 Mirtazapine [Remeron] 15 mg PO HS #30 tab 07/08/18 hydrOXYzine HCl [Atarax] 25 mg PO BID PRN #60 tab 07/08/18 traZODone [Desyrel] 50 mg PO HS PRN #30 tab 07/08/18 Review of Systems - Neurological Neurological: Tremor - Psychiatric Psychiatric: Abnormal Sleep Pattern, Anhedonia, Anxiety, Behavioral Changes, Change in Appetite, Depression, Difficulty Concentrating, Irritability. absent: Homicidal Ideation, Suicidal Ideation Mental Status Examination - Personal Presentation Personal Presentation: Looks stated age - Affect Affect: Constricted - Motor Activity Motor Activity: Calm - Reliability in Providing Information Reliability in Providing Information: Good - Speech Speech: Organized - Mood Mood: Depressed, Anxious - Formal Thought Process Formal Thought Process: No Impairment - Cognitive Functions Orientation: Person, Place, Situation, Time Sensorium: Alert Attention/Concentration: Easily distracted Estimate of Intelligence: Average Judgement: Intact, as evidence by: Insight regarding need for hospitalization Memory: Recent intact, as evidence by: Ability to recall events of the day, Remote intact, as evidenced by: Abilit to recall sig. life events - Risk Risk: Withdrawal, Diminished functioning - Strength & Assets Inventory Strength & Assets Inventory: Cooperative DSM 5 DX - DSM 5 DSM 5 Diagnosis: Opioid withdrawal Alcohol withdrawal Opioid use d/o - severe Alcohol use d/ - severe PCP use d/o -severe Bipolar d/o -- depressed Personality d/o - unspecified - Recommended/Plan of Treatment Treatment Recommendations and Plan of Treatment: Taper with ativan (liver is impaired) and methadone Gabapentin for augmentation remeron for depression As needed medications All risks, benefits and alternatives of the meds discussed, and the pt agreed and understood. Attend groups and activities Supportive therapy and psychoeducation [place] for abstinence CBT for relapse prevention Encourage MAT Refer to rehab or IOP, and self-help groups Teach healthy lifestyle methods, i.e. diet, exercise, meditation Smoking cessation with [place] Nicotine patch if needed 34 min Projected ELOS: 4-5 days Prognosis: good w treatment - Smoking Cessation Smoking Cessation Initiated: Yes
[2018-12-02] MEDS ORDERED: Aluminum Hydroxide/Magnesium Hydroxide Susp (30 mL) PO PRN (14:00)
--- NOTE | 2018-12-02 14:12 | PCM.BM ---
<Josiah Warner - Last Filed: 12/02/18 14:10> Treatment Plan Problems - Problems identified on initial assessmt knowledge deficit;alcohol use Date Initiated: 12/02/18 Time Initiated: 14:11 Assessment reference: NA Status: Active anxiety related to substance use Date Initiated: 12/02/18 Time Initiated: 14:12 Assessment reference: NA Status: Active defensive coping Date Initiated: 12/02/18 Time Initiated: 14:13 Assessment reference: NA Status: Active chronic low self esteem Date Initiated: 12/02/18 Time Initiated: 14:14 Assessment reference: NA Status: Active Treatment assets and liabiliti Patient Assests: cooperative, insightful, motivated, ADL independent, physically healthy, cognitively intact Patient Liabilities: substance abuse - Milieu Protocol Maintain good personal hygiene: daily Encourage regular showers, daily Remind patient to perform daily oral care, daily Assist patient to perform ADL's Conduct patient checks and document Observation sheet: Q15 minutes Maintain personal safety: every shift Educate patient to report safety concerns to staff, every shift Monitor environment for contraband/sharps Medication safety: Monitor for expected outcome, potential side effects: every shift, Assess barriers to learning: every shift, Assess readiness for medication education: every shift <Doyle Booth - Last Filed: 12/03/18 14:21> - Diagnosis (1) Alcohol use disorder, severe, dependence Status: Acute Interventions: 12/03/18 14:21 * Assess 7x/week regarding severity of withdrawal * Educate regarding risks, benefits, side effects and alternatives of medications * Use Motivational Interviewing for abstinence * Use CBT for relapse prevention * Medication management for withdrawal symptoms * Encourage medication assisted treatment * (2) Bipolar 1 disorder, depressed Status: Acute Interventions: 12/03/18 14:21 * Assess/adjust medications daily and /or as needed * See patient on an individual basis 7x/week to assess level of manic behaviors and stability * Discuss risks, benefits, side effects and alternatives of medications * (3) Opioid use disorder, severe, dependence Status: Acute Interventions: 12/03/18 14:21 * Assess 7x/week regarding severity of withdrawal * Educate regarding risks, benefits, side effects and alternatives of medicati ons * Use Motivational Interviewing for abstinence * Use CBT for relapse prevention * Medication management for withdrawal symptoms * Encourage medication assisted treatment *
[2018-12-02] MEDS: Multiple Vitamins Tab PO SCH (14:24)
[2018-12-03] MEDS: Multiple Vitamins Tab PO SCH (10:40)
[2018-12-04] MEDS: Multiple Vitamins Tab PO SCH (09:33)
--- NOTE | 2018-12-04 11:33 | RAD ---
Date of service: 12/03/2018 PROCEDURE: Radiographs of the Right Shoulder HISTORY: pain at right shoulder COMPARISON: No prior. FINDINGS: BONES: No acute fracture. Deformity of distal clavicle likely posttraumatic. JOINTS: Normal. Glenohumeral and acromioclavicular joints preserved. No osteoarthritis. SOFT TISSUES: Normal. OTHER FINDINGS: None. IMPRESSION: No acute fracture or dislocation.
[2018-12-04] MEDS: Tramadol 25 mg PO PRN (16:29)
[2018-12-05] MEDS: Multiple Vitamins Tab PO SCH (10:00)
--- NOTE | 2018-12-05 15:01 | PCM.PYCHPN ---
Psychiatric Progress Note - Psychiatric Progress Note Patient seen today, length of contact: 18 min Patient Chief Complaint: "I'm in pain" Problems Identified/Issues Discussed: The pt is seen, chart reviewed, case is discussed with staff. The pt is compliant with medications and reports no side-effects. Symptoms are improving but needs more time to stabilize and to avoid relapse. Pt c/o pain despite pain meds and supportive measures PT is called, XR was done He says he had fallen months ago and has a deformity in his clavicle. No acute issue is observed except for his subjective c/o pain. Support given, psycho-education provided. After care discussed. Medication Change: Yes (detox changes daily) Medical Record Reviewed: Yes Mental Status Examination - Cognitive Function Orientation: Person, Place, Situation, Time Memory: Impaired Attention: Poor Concentration: Poor Association: WNL Fund of Knowledge: WNL - Mood Mood: Depressed, Anxious - Affect Affect: Constricted - Speech Speech: Appropriate - Formal Thought Process Formal Thought Process: No Impairment - Suicidal Ideation Suicidal Ideation: No - Homicidal Ideation Homicidal Ideation: No Goal/Treatment Plan - Goal/Treatment Plan Need for Continued Stay: Discharge may exacerbated symptoms, Severe functional impairment Progress Toward Problem(s) and Goals/Treatment Plan: Taper with ativan (liver is impaired) and methadone Gabapentin for augmentation remeron for depression As needed medications All risks, benefits and alternatives of the meds discussed, and the pt agreed and understood. Attend groups and activities Supportive therapy and psychoeducation [place] for abstinence CBT for relapse prevention Encourage MAT Refer to rehab or IOP, and self-help groups Teach healthy lifestyle methods, i.e. diet, exercise, meditation Smoking cessation with [place] Nicotine patch if needed
[2018-12-05] MEDS: Tramadol 25 mg PO PRN (18:04)
[2018-12-05 20:32] VITALS: RESP 18
--- NOTE | 2018-12-06 09:00 | PCM.PYCHDC ---
Mental Status Examination - Mental Status Examination Orientation: Person Discharge Summary - Discharge Note Consultations:: List each consultation separately and include: 1. Reason for request. 2. Findings. 3. Follow-up Summary of Hospital Course include:: 1. Description of specific treatment plan utilized for patients during their course of treatmen. 2. Summarize the time- course for resolution of acute symptoms and/or regressed behaviors. 3. Describe issues identified and worked on during hospitalization. 4. Describe medication utilized. 5. Describe medical problems identified and treated. 6. Reassessment of suicide risk Summary of Hospital Course: Patient is 48 year old, single, unemployed Male with history of bipolar disorder depressed, PCP, alcohol and heroin use was admitted for the treatment of withdrawing from alcohol and heroin. He is currently living alone in an apartment that is supported by "[employer] [facility]- provided by welfare". He is currently unemployed, single with 3 children, highest education level of 11th grade from [employer] [id number]. He is known from previous admissions. Alcohol: Started at 16 years of age, increased gradually up to 10 of the 24- ounce cans of beer and 5 shots daily. Last drink yesterday. Heroin: Started at 19 years of age. Currently he was using 8-10 bags daily, sniffing. Last used yesterday. He also admitted to using methadone "a little" recently b/c of withdrawals. Longest period of abstinence was 10 years from 1999 to 2009. Patient reported that he relapsed then stopped. And relapsed again in January 2018. Pt also smokes PCP sometimes. Patient reported feeling depressed with sadness, anhedonia, decreased sleep and appetite and lost some weight. He has suicidal ideations but denies any plan or intention and agrees to follow safety plan. Patient reported noncompliant with treatment. Denies major medical issues. He was upset about his shoulder and got agitated at times. PT consulted, Ultram prescribed. XRay done. [facility]. - Final Diagnosis (DSM 5) Condition upon Discharge: GOOD Disposition: HOME/ ROUTINE Follow-up Treatment Plan: Taper with ativan (liver is impaired) and methadone Gabapentin for augmentation remeron for depression As needed medications All risks, benefits and alternatives of the meds discussed, and the pt agreed and understood. Attend groups and activities Supportive therapy and psychoeducation [place] for abstinence CBT for relapse prevention Encourage MAT Refer to rehab or IOP, and self-help groups Teach healthy lifestyle methods, i.e. diet, exercise, meditation Smoking cessation with [place] Nicotine patch if needed
[2018-12-06] MEDS ORDERED: Naproxen 550 mg Tab PO PRN (09:20)
[2018-12-06] MEDS: Multiple Vitamins Tab PO SCH (09:59)
[2018-12-06 10:18] VITALS: BP 107/80; PULSE 77; TEMP 97.4; O2SAT 99
== END 2018-12-06 10:15 | disposition home or self-care (01) | DRG 745 ==
LOC: C.ER 09:03 → C.7D 12:03
PROVIDERS: ADMIT Psychiatry & Neurology Psychiatry; ATTEND Psychiatry & Neurology Psychiatry
PROC: HZ52ZZZ Individual Psychotherapy for Substance Abuse Treatment, Cognitive-Behavioral (ICD-10-PCS; principal; 2018-12-02)
PROC: HZ2ZZZZ Detoxification Services for Substance Abuse Treatment (ICD-10-PCS; 2018-12-02)
PROC: HZ59ZZZ Individual Psychotherapy for Substance Abuse Treatment, Supportive (ICD-10-PCS; 2018-12-02)
PROC: HZ56ZZZ Individual Psychotherapy for Substance Abuse Treatment, Psychoeducation (ICD-10-PCS; 2018-12-02)
PROC: HZ42ZZZ Group Counseling for Substance Abuse Treatment, Cognitive-Behavioral (ICD-10-PCS; 2018-12-02)
PROC: HZ46ZZZ Group Counseling for Substance Abuse Treatment, Psychoeducation (ICD-10-PCS; 2018-12-02)
PROC: GZHZZZZ Group Psychotherapy (ICD-10-PCS; 2018-12-02)
PROC: GZ58ZZZ Individual Psychotherapy, Cognitive-Behavioral (ICD-10-PCS; 2018-12-02)
PROC: GZ56ZZZ Individual Psychotherapy, Supportive (ICD-10-PCS; 2018-12-02)
DX: F11.23 Opioid dependence with withdrawal (principal); F10.230 Alcohol dependence with withdrawal, uncomplicated; F16.20 Hallucinogen dependence, uncomplicated; R45.851 Suicidal ideations; F31.30 Bipolar disorder, current episode depressed, mild or moderate severity, unspecified; F17.210 Nicotine dependence, cigarettes, uncomplicated; Z91.19 Patient's noncompliance with other medical treatment and regimen; M25.511 Pain in right shoulder

== ENCOUNTER 2018-12-06 10:24 | Emergency (ER) | payer MEDICAID ==
[2018-12-06 10:24] VITALS: BMI 27.4
[2018-12-06 10:37] VITALS: BP 110/79; PULSE 91; RESP 20; TEMP 98.2; O2SAT 98
--- NOTE | 2018-12-06 10:56 | C.PDOC ---
History Of Present Illness 48-year-old male presents to the ED for evaluation of chronic right shoulder pain. Patient has been evaluated in this ED for similar symptoms in the past, and has undergone several X-rays which have been unremarkable. He presents today requesting an MRI. He denies any new injuries or extremity numbness/weakness at this time. Time Seen by Provider: 12/06/18 10:37 Chief Complaint (Nursing): Upper Extremity Problem/Injury History Per: Patient History/Exam Limitations: no limitations Onset/Duration Of Symptoms: Days Quality: "Pain" Additional History Per: Patient Past Medical History Reviewed: Historical Data, Nursing Documentation, Vital Signs Vital Signs: Last Vital Signs Temp 98.2 F 12/06/18 10:34 Pulse 91 H 12/06/18 10:34 Resp 20 12/06/18 10:34 BP 110/79 12/06/18 10:34 Pulse Ox 98 12/06/18 10:34 - Medical History PMH: Anxiety, Back Problems, Bipolar Disorder, Depression, Hepatitis (C-cured) Denies: Diabetes, HIV, HTN, Chronic Kidney Disease, Seizures, Sexually Transmitted Disease Surgical History: Endoscopy - [facility] Procedures CLOSURE SKIN & SUBCUTANEOUS NEC (06/14/13) DETOXIFICATION SERVICES FOR SUBSTANCE ABUSE TREATMENT (10/13/18) GROUP DIRECT SUPPORT PROFESSIONAL HOME HEALTH FOR SUBSTANCE ABUSE TREATMENT, PSYCHOEDUCATION (10/13/18) GROUP DIRECT SUPPORT PROFESSIONAL HOME HEALTH FOR SUBSTANCE ABUSE, COGNITIVE BEHAVIORAL (10/13/18) GROUP PSYCHOTHERAPY (10/13/18) INDIV PSYCHOTHERAPY FOR SUBSTANCE ABUSE TREATMENT, SUPPORT (10/13/18) INDIV PSYCHOTHERAPY FOR SUBSTANCE ABUSE, COGNITIV BEHAVIORAL (10/13/18) INDIV PSYCHOTHERAPY FOR SUBSTANCE ABUSE, PSYCHOEDUCATION (10/13/18) INDIVIDUAL PSYCHOTHERAPY, COGNITIVE-BEHAVIORAL (10/13/18) INDIVIDUAL PSYCHOTHERAPY, SUPPORTIVE (10/13/18) TETANUS TOXOID ADMINIST (06/14/13) Family History: States: Unknown Family Hx - Social History Hx Tobacco Use: No Hx Alcohol Use: Yes Hx Substance Use: Yes (Ex user) - Immunization History Hx Tetanus Toxoid Vaccination: Yes Hx Influenza Vaccination: Yes Hx Pneumococcal Vaccination: No Review Of Systems Musculoskeletal: Positive for: Shoulder Pain (right, chronic ) Neurological: Negative for: Weakness, Numbness Physical Exam - Physical Exam Appears: Non-toxic, No Acute Distress Skin: Normal Color, Warm, Dry Head: Atraumatic, Normacephalic Eye(s): bilateral: Normal Inspection Oral Mucosa: Moist Neck: Supple Chest: Symmetrical, No Deformity, No Tenderness Cardiovascular: Rhythm Regular, No Murmur Respiratory: Normal Breath Sounds, No Rales, No Rhonchi, No Wheezing Extremity: No Normal ROM (limited in right shoulder secondary to pain ), No Tenderness, Capillary Refill (less than 2 seconds ), No Deformity, No Swelling Neurological/Psych: Normal Speech, Normal Cognition, Normal Sensation ED Course And Treatment O2 Sat by Pulse Oximetry: 98 (on RA) Pulse Ox Interpretation: Normal Medical Decision Making Medical Decision Making: Progress: Patient is refusing pain medication at this time, and is requesting referral for orthopedics. Disposition - Disposition Referrals: Feliz Bates MD [Non-Staff] - Dawna Cagle MD [Staff Provider] - Michael Moreira MD [Staff Provider] - Disposition: HOME/ ROUTINE Disposition Time: 10:55 Condition: GOOD Additional Instructions: FOLLOW UP WITH THE ORTHOPEDIST WITHIN 2-3 DAYS. RETURN IF WORSENED. Instructions: Rotator Cuff Injury Forms: [facility] ([place]) - Clinical Impression Clinical Impression: Shoulder pain - PA / SUPPORT ASSISTANT / Resident Statement MD/DO has reviewed & agrees with the documentation as recorded. - Scribe Statement The provider has reviewed the documentation as recorded by the Scribe (Danielle Curtis) All medical record entries made by the Scribe were at my direction and personally dictated by me. I have reviewed the chart and agree that the record accurately reflects my personal performance of the history, physical exam, medical decision making, and the department course for this patient. I have also personally directed, reviewed, and agree with the discharge instructions and disposition.
== END 2018-12-06 11:05 | disposition home or self-care (01) ==
LOC: C.ER 10:24
DX: M25.511 Pain in right shoulder (principal)

== ENCOUNTER 2018-12-07 11:41 | Emergency (ER) | payer MEDICAID ==
[2018-12-07 11:45] VITALS: BMI 25.7
[2018-12-07] MEDS ORDERED: Lidocaine 5% Patch TD STA (12:11)
--- NOTE | 2018-12-07 12:11 | C.PDOC ---
History Of Present Illness 48 y/o male with PMH of opioid abuse and chronic right shoulder pain presents to the ED complaining of right shoulder pain, unrelieved by naproxen today. Patient was seen here yesterday for the same complaint, and discharged home with naproxen and ortho follow up. He has not followed up with ortho or his PMD. Patient has had multiple x-rays showing chronic degenerative changes in the past. States he took 3 naproxen today without relief. Patient states his last drug use was prior to recent detox (12/02). States he does not want narcotic medications for his pain. Patient notes pain occasionally radiates down his right arm. He denies any fever, chills, new injury, numbness, weakness, paresthesias, or open wounds. Time Seen by Provider: 12/07/18 11:54 Chief Complaint (Nursing): Upper Extremity Problem/Injury History Per: Patient History/Exam Limitations: no limitations Onset/Duration Of Symptoms: Days Current Symptoms Are (Timing): Still Present Severity: Moderate Exacerbating Factor(s): Movement Past Medical History Reviewed: Historical Data, Nursing Documentation, Vital Signs Vital Signs: Last Vital Signs Temp 97.7 F 12/07/18 11:45 Pulse 82 12/07/18 11:45 Resp 18 12/07/18 11:45 BP 133/99 H 12/07/18 11:45 Pulse Ox 100 12/07/18 11:45 - Medical History PMH: Anxiety, Back Problems, Bipolar Disorder, Depression, Hepatitis (C-cured), Chronic Pain (Right Shoulder) Denies: Diabetes, HIV, HTN, Chronic Kidney Disease, Seizures, Sexually Transmitted Disease Surgical History: Endoscopy - [facility] Procedures CLOSURE SKIN & SUBCUTANEOUS NEC (06/14/13) DETOXIFICATION SERVICES FOR SUBSTANCE ABUSE TREATMENT (12/02/18) GROUP STUDENT LIFE DEAN FOR SUBSTANCE ABUSE TREATMENT, PSYCHOEDUCATION (12/02/18) GROUP STUDENT LIFE DEAN FOR SUBSTANCE ABUSE, COGNITIVE BEHAVIORAL (12/02/18) GROUP PSYCHOTHERAPY (12/02/18) INDIV PSYCHOTHERAPY FOR SUBSTANCE ABUSE TREATMENT, SUPPORT (12/02/18) INDIV PSYCHOTHERAPY FOR SUBSTANCE ABUSE, COGNITIV BEHAVIORAL (12/02/18) INDIV PSYCHOTHERAPY FOR SUBSTANCE ABUSE, PSYCHOEDUCATION (12/02/18) INDIVIDUAL PSYCHOTHERAPY, COGNITIVE-BEHAVIORAL (12/02/18) INDIVIDUAL PSYCHOTHERAPY, SUPPORTIVE (12/02/18) TETANUS TOXOID ADMINIST (06/14/13) Family History: States: Unknown Family Hx - Social History Hx Tobacco Use: No Hx Alcohol Use: Yes Hx Substance Use: Yes (Ex user) - Immunization History Hx Tetanus Toxoid Vaccination: Yes Hx Influenza Vaccination: Yes Hx Pneumococcal Vaccination: No Review Of Systems Except As Marked, All Systems Reviewed And Found Negative. Constitutional: Negative for: Fever, Chills Cardiovascular: Negative for: Chest Pain Respiratory: Negative for: Shortness of Breath Gastrointestinal: Negative for: Nausea, Vomiting Musculoskeletal: Positive for: Shoulder Pain (right) Skin: Negative for: Rash, Lesions Neurological: Negative for: Weakness, Numbness Physical Exam - Physical Exam Appears: Well, Non-toxic, No Acute Distress Skin: Normal Color, Warm, Dry, No Rash, No Ecchymosis Head: Atraumatic, Normacephalic Eye(s): bilateral: Normal Inspection, PERRL, EOMI Nose: Normal Neck: Normal ROM, Supple Chest: Symmetrical Cardiovascular: Rhythm Regular Respiratory: Normal Breath Sounds, No Accessory Muscle Use, Other (No respiratory distress) Back: No Vertebral Tenderness, No Decreased ROM Extremity: Normal ROM (with full ROM of right upper extremity), Tenderness (to the right posterior shoulder), Capillary Refill (< 2 sec), No Deformity, No Swelling, Other (strength 5/5 bilaterally, pulses 2/2 bilaterally) Pulses: Left Radial: Normal, Right Radial: Normal Neurological/Psych: Oriented x3, Normal Speech, Normal Motor, Normal Sensation Gait: Steady ED Course And Treatment O2 Sat by Pulse Oximetry: 100 (RA) Pulse Ox Interpretation: Normal Medical Decision Making Medical Decision Making: Impression: Chronic right shoulder pain Plan: Discussion had with patient regarding necessity of outpatient imaging including possible MRI. Emphasized the importance of orthopedic follow up. Patient verbalizes understanding, states he just needs a referral and wants a prescription for Lidoderm patch. Diagnostic testing results and plan of care discussed with patient. Strict instructions given regarding prescription use, importance of followup, and signs/symptoms to return to ER including numbness, paresthesias, weakness, or any other new/worsening symptoms. Pt verbalized understanding of discussion. Patient is A&Ox3, ambulating with steady gait, with vital signs stable for discharge. Disposition Counseled Patient/Family Regarding: Diagnosis, Need For Followup, Rx Given - Disposition Referrals: [facility] [Outside] Chao Martines III, MD [Staff Provider] - Disposition: HOME/ ROUTINE Disposition Time: 12:30 Condition: STABLE Additional Instructions: Lidoderm patches daily, 12 hours on 12 hours off Followup with orthopedics within 2 days Followup with primary doctor within 2 days Return to ER with any new/worsening symptoms Prescriptions: Lidocaine 5% [Lidoderm] 1 ea TD DAILY PRN #30 patch PRN Reason: Pain, Mild (1-3) Instructions: Tendinopathy Forms: General Discharge Instructions, [facility] ([place]), Work Excuse - POA Present On Arrival: None - Clinical Impression Clinical Impression: Chronic pain - PA / VALVE LAPPER / Resident Statement MD/DO has reviewed & agrees with the documentation as recorded. - Scribe Statement The provider has reviewed the documentation as recorded by the Scribcandi Justin All medical record entries made by the Scribe were at my direction and personally dictated by me. I have reviewed the chart and agree that the record accurately reflects my personal performance of the history, physical exam, medical decision making, and the department course for this patient. I have also personally directed, reviewed, and agree with the discharge instructions and disposition.
[2018-12-07] MEDS ORDERED: Lidocaine 5% Patch TD ONE (12:17)
[2018-12-07 12:31] VITALS: BP 115/80; PULSE 78; RESP 17; TEMP 98.4
[2018-12-07 13:05] VITALS: O2SAT 100
== END 2018-12-07 12:33 | disposition home or self-care (01) ==
LOC: C.ER 11:41
DX: G89.29 Other chronic pain (principal)